=== PATIENT | female | born 1945 | race Caucasian/White ===

== ENCOUNTER → 2016-09-17 | Outpatient (CLI) | payer OTHER ==
[~2016-09-17] MED LIST: ACET-1256 PO; ASPI81TA28 PO; CETI10TA84 PO; CHOL100010 PO; CHOL2000 PO; CYAN500T13 PO; DICL-201 PO; DLD2 PO; ESOM20CA PO; LEVO-371 PO; LEVO137T3 PO; LEVO150T9 PO; MELA1TAB5 PO; MONT1TAB3 PO; MULT-513 PO; NAPR1TAB9 PO; NRN100 PO; RANI300T2 PO; SIMV20TA2 PO; TRMCR515 TOP
--- NOTE | 2016-09-17 12:46 | MAMMOGRAPHY REPORT ---
BILATERAL DIGITAL SCREENING MAMMOGRAM WITH CAD: 09/17/2016 CLINICAL HISTORY: Routine screening. Patient has no complaints. TECHNIQUE: Current study was also evaluated with a Computer Aided Detection (CAD) system. Bilatera l CC and MLO views were obtained. COMPARISON: Comparison is made to exams dated: 09/15/2015 mammogram, 09/07/2013 mammogram, 09/13/2014 m ammogram, 08/31/2012 mammogram, 08/30/2011 mammogram, and 08/28/2010 mammogram - [facility]. BREAST COMPOSITION: There are scattered areas of fibroglandular density in both breasts. FINDINGS: No suspicious masses, calcifications, or areas of architectural distortion are noted in e ither breast. There has been no significant interval change compared to prior exams. IMPRESSION: ACR BI-RADS CATEGORY 1: NEGATIVE There is no mammographic evidence of malignancy. A 1 year screening mammogram is recommended. The p atient will receive written notification of the results. Approximately 10% of breast cancers are not detected with mammography. A negative mammographic repor t should not delay biopsy if a clinically suggestive mass is present. Sho Becerril M.D. /:09/17/2016 10:14:44 Molder Trimmer: Iman BEGUM(R)(M), [facility] letter sent: Normal 1/2 BI-RADS Code: ACR BI-RADS Category 1: Negative
== END | disposition home or self-care (01) ==
LOC: C.MAMM 09:52
PROVIDERS: ATTEND Internal Medicine Geriatric Medicine
DX: Z12.31 Encounter for screening mammogram for malignant neoplasm of breast (principal)

== ENCOUNTER 2016-11-19 05:16 | Inpatient (IN) | payer OTHER ==
[2016-10-26 10:59] VITALS: BMI 40.0
--- NOTE | 2016-10-26 11:25 | PAT Medication Instructions ---
Service Date Oct 26, 2016. Current Home Medication List Acetaminophen (Tylenol), 1,000 MG PO TID Aspirin (Aspirin Ec), 81 MG PO QAM Cetirizine (Zyrtec), 10 MG PO DAILY PRN for PRN Cholecalciferol (Vitamin D), 2,000 INTER.UNIT PO QAM Diclofenac (Voltaren), 75 MG PO BID Esomeprazole Magnesium (Nexium), 20 MG PO QAM PRN for RN Levothyroxine Sodium (Levothyroxine Sodium), 1 TAB PO QAM Melatonin (Kp Melatonin), 1 TAB PO HS PRN for PRN Ranitidine (Zantac), 300 MG PO QPM PRN for RN Simvastatin (Zocor), 20 MG PO QPM Triamcinolone Acet (Triamcinolone Acetonide), 1 APPLN TOP BID PRN for PRN Medication Instructions For Your Scheduled Surgery Diclofenac (Voltaren), 75 MG PO BID (per surgeon instructions) - Hold the following medications 24 hours prior to surgery: Triamcinolone Acet (Triamcinolone Acetonide), 1 APPLN TOP BID PRN for PRN - Hold the following medications the morning of surgery: Cetirizine (Zyrtec), 10 MG PO DAILY PRN for PRN Cholecalciferol (Vitamin D), 2,000 INTER.UNIT PO QAM - Take the following medications the morning of surgery with a sip of water: Levothyroxine Sodium (Levothyroxine Sodium), 1 TAB PO QAM Esomeprazole Magnesium (Nexium), 20 MG PO QAM PRN for RN Aspirin (Aspirin Ec), 81 MG PO QAM Acetaminophen (Tylenol), 1,000 MG PO TID (if needed) - Take the following medications as scheduled the night before surgery: Simvastatin (Zocor), 20 MG PO QPM Melatonin (Kp Melatonin), 1 TAB PO HS PRN for PRN Ranitidine (Zantac), 300 MG PO QPM PRN for RN Acetaminophen (Tylenol), 1,000 MG PO TID (if needed) If you have any questions please call us at [phone] or [phone] ( N[place]) or [phone]
[2016-10-26 12:52] LABS: URINE APPEARANCE CLEAR (CLEAR); URINE BILIRUBIN NEG (NEG); URINE COLOR YELLOW; URINE NITRITE NEG (NEG); URINE PH 7.5 (4.5-7.5); URINE SPECIFIC GRAVITY 1.007 (1.000-1.030); UROBILINOGEN NEG (NEG)
[2016-10-26 12:52] LABS: BASO % 0.2 %; BASO ABS # 0.01 K/uL (0-0.2); COMPLETE YES; EOS % 2.3 %; HEMATOCRIT 35.5 % (37-47); IG% 0.2 %; LYMPH % 18.9 %; LYMPH ABS # 0.81 K/uL (1.2-3.4); MEAN CELL VOLUME 91.7 fL (80-100); MEAN CORPUSCULAR HEMOGLOBIN 31.3 pg (25-34); MEAN CORPUSCULAR HGB CONC 34.1 g/dl (32-36); MEAN PLATELET VOLUME 9.9 fL (7.4-10.4); MONO % 4.7 %; NEUT % 73.7 %; PLATELET COUNT 205 K/uL (130-400); RED BLOOD COUNT 3.87 M/uL (4.2-5.4); WHITE BLOOD COUNT 4.28 K/uL (4.8-10.8)
[2016-10-26 12:56] LABS: MANUAL MICROSCOPIC REQUIRED? NO; REVIEW REQ? NO
[2016-10-26 13:03] LABS: INR 0.9 (0.9-1.1); PROTHROMBIN TIME (PATIENT) 10.1 SECONDS (9.0-12.0)
[2016-10-26 13:22] LABS: BUN/CREATININE RATIO 23.3 (10-20); CALCIUM 9.9 mg/dl (8.5-10.1); CREATININE 0.77 mg/dl (0.60-1.20); POTASSIUM 4.4 mmol/L (3.5-5.1)
--- NOTE | 2016-11-17 17:39 | HISTORY & PHYSICAL EXAMINATION ---
DATE OF ADMISSION: 11/19/2016 CHIEF COMPLAINT: Primary osteoarthritis of the right hip. HISTORY OF PRESENT ILLNESS: Alexandrea is a pleasant 71-year-old female who has been having right hip pain for several months. I did a left total hip arthroplasty on her about 3 months ago and she has done very well with that and she was hoping to have the same procedure on the contralateral side. X-rays and clinical examination are diagnostic for primary osteoarthritis of the right hip. After failing extensive conservative treatment, she has elected to proceed with a right total hip arthroplasty. PAST SURGICAL HISTORY: Significant for a left total knee arthroplasty, right total knee arthroplasty, carpal tunnel release bilaterally, rotator cuff repair and a left total hip arthroplasty on 08/20/2016. MEDICATIONS: Include Tylenol 1000 mg as needed, aspirin 81 mg daily, Zyrtec 10 mg daily, vitamin D 2000 units daily, vitamin B12 250 mcg daily, Voltaren 25 mg twice a day, Nexium 20 mg daily, Synthroid 137 mcg daily, melatonin 3 mg daily, Zantac 300 mg as needed, Zocor 20 mg daily, and triamcinolone cream as needed. PAST MEDICAL HISTORY: Significant for hypothyroidism, hyperlipidemia. ALLERGIES: SULFA. FAMILY HISTORY: Noncontributory. SOCIAL HISTORY: The patient is . Rarely drinks, is fairly sedentary. REVIEW OF SYSTEMS: She complains of right hip pain. All other pertinent review of systems are negative. PHYSICAL EXAMINATION: GENERAL: She is awake, alert and oriented x3. She is in no apparent distress. She is very pleasant. HEENT: Pupils are equal, round and reactive to light. Extraocular movements are intact. Oral mucosa is pink and moist. HEART: Regular rate per radial pulse. LUNGS: Shara symmetrically bilaterally with no audible breath sounds. ABDOMEN: Soft, nontender, nondistended. MUSCULOSKELETAL: On physical examination of her right hip, her leg lengths are equal. She does have pain with forced internal and external rotation of her right hip. All her pain is located in her groin. X-rays of the right hip do show advanced osteoarthritis with osteophyte formation and loss of joint space. IMPRESSION: Osteoarthritis of the right hip. PLAN: We will proceed with a Biomet taper lock right total hip arthroplasty. Postoperatively, she will be placed in a soft dressing and discharged to general orthopedic floor. She will be kept on aspirin 325 mg twice a day for DVT prophylaxis. She will likely stay 2 midnights for postoperative medical management.
[~2016-11-19] VITALS: Ht 157.5 cm; Wt 100.9 kg
[2016-11-19] VITALS (9 sets, daily range): BP systolic 92–144; BP diastolic 61–92; PULSE 65–75; TEMP 36.4–36.8; O2SAT 94–99; Ht 157.5 cm; Wt 100.9 kg
[~2016-11-19 05:16] MED LIST changes: -CHOL2000 PO; -CYAN500T13 PO; -DLD2 PO; -LEVO-371 PO; -LEVO150T9 PO; -MONT1TAB3 PO; -MULT-513 PO; -NAPR1TAB9 PO; -NRN100 PO
[2016-11-19] MEDS ORDERED: CEFAZOLIN 2000 MG/60 ML D5W 60 ML IV SCH (06:00)
[2016-11-19] MEDS ORDERED: ACETAMINOPHEN 500 MG TAB PO SCH (06:00)
[2016-11-19] MEDS ORDERED: ROPIVACAINE 5MG/ML 30 ML 150 MG, BUPIVACAINE/EPINEPHR 0.5% MPF 30 ML, KETOROLAC TROMETH... INFIL SCH ×7 (06:00)
[2016-11-19] MEDS ORDERED: GABAPENTIN 300 MG CAP PO SCH (06:00)
[2016-11-19] MEDS ORDERED: FAMOTIDINE 20 MG TAB PO SCH (06:00)
[2016-11-19] MEDS ORDERED: LACTATED RINGER'S 1000ML 500 ML IV ONE (06:00)
[2016-11-19] MEDS ORDERED: LACTATED RINGER'S 1000ML 1,000 ML IV SCH (06:00)
[2016-11-19] MEDS ORDERED: LACTATED RINGER'S 1000ML IV SCH (06:00)
[2016-11-19] MEDS ORDERED: BUPIVACAINE 0.5 % 5 MG/1 ML PF 10ML VIAL ONE (06:14)
[2016-11-19] MEDS ORDERED: ONDANSETRON INJ 2 MG/ML 2 ML VIAL ONE (06:15)
[2016-11-19] MEDS ORDERED: FENTANYL CITRATE INJ 50 MCG/1 ML 2 ML VIAL ONE (06:15)
[2016-11-19] MEDS ORDERED: MIDAZOLAM HCL 1 MG/ML 2ML VIAL ONE ×2 (06:15)
[2016-11-19] MEDS ORDERED: PROPOFOL IV EMULSION 10 MG/ML 20 ML VIAL IV ONE ×2 (06:15→07:49)
[2016-11-19] MEDS: TRANEXAMIC ACID INJ 1,000 MG in SODIUM CHLORIDE 0.9% 100ML 100 ML IV SCH ×2 (06:30→06:36)
[2016-11-19] MEDS ORDERED: ORTHO JOINT ANESTHETIC ONE (06:37)
[2016-11-19] MEDS ORDERED: BACITRACIN 50000 UNIT VIAL ONE (06:38)
--- NOTE | 2016-11-19 06:51 | History & Physical Bridge Note ---
H&P Re-Evaluation Bridge Note: I have examined the patient, reviewed the History & Physical and in the interval since the performance of the History & Physical I have noted the following changes of clinical significance: No changes noted
[2016-11-19] MEDS ORDERED: PHENYLEPHRINE 100MCG/ML 5ML SYR IV PRN (07:30)
[2016-11-19] MEDS ORDERED: FENTANYL CITRATE INJ 50 MCG/1 ML 2 ML VIAL IV PRN (07:30)
[2016-11-19] MEDS ORDERED: EpHEDrine SULFATE INJ 50 MG/ML AMP IV PRN (07:30)
[2016-11-19] MEDS ORDERED: ONDANSETRON INJ 2 MG/ML 2 ML VIAL IV PRN ×2 (07:30→09:00)
[2016-11-19] MEDS ORDERED: NALOXONE HCL 0.4 MG/1 ML VIAL/CARP IV PRN (07:30)
[2016-11-19] MEDS ORDERED: MEPERIDINE HCL 25 MG/ML CARP IV PRN (07:30)
[2016-11-19] MEDS ORDERED: FLUMAZENIL 0.1 MG/1 ML 10 ML VIAL IV PRN (07:30)
[2016-11-19] MEDS ORDERED: LABETALOL HCL IV 5 MG/ML 20ML IV PRN (07:30)
[2016-11-19] MEDS ORDERED: ATROPINE SULFATE 0.1 MG/ML 5ML SYR IV PRN (07:30)
[2016-11-19] MEDS ORDERED: PHENYLEPHRINE 100MCG/ML 5ML SYR ONE (07:37)
[2016-11-19] MEDS ORDERED: EpHEDrine SULFATE 50MG/5ML SYR ONE (07:58)
--- NOTE | 2016-11-19 08:22 | DIAGNOSTIC IMAGING REPORT ---
SINGLE VIEW RIGHT HIP CLINICAL HISTORY: Intraoperative radiograph. FINDINGS: An AP portable view of the right hip is compared to pelvic x-ray dated 10/05/2016. The skeletal structures are osteopenic. A bipolar right hip arthroplasty is in near-anatomic alignment. A single cortical lag screw transfixes the acetabular cup. No acute fracture is seen. There is expected subcutaneous gas and soft tissue swelling overlying the right hip. IMPRESSION: A right hip arthroplasty is in near-anatomic alignment. See above. Electronically signed by: Mj Guzman M.D. 11/19/2016 8:20 AM Dictated Date/Time: 11/19/2016 8:19 AM
--- NOTE | 2016-11-19 08:55 | [facility] Post Operative Brief Note ---
Immediate Operative Summary Operative Date Nov 19, 2016. Pre-Operative Diagnosis Osteoarthritis of right hip Post-Operative Diagnosis Osteoarthritis of right hip Procedure(s) Performed Right Total Hip Arthroplasty Surgeon Dr Khan Centerless Grinding Machine Adjuster Surgeon(s) Sheldon Vogel PA-C Estimated Blood Loss 300ml Findings as above Specimens A: Humeral head Complication(s) None Disposition Recovery Room / PACU
[2016-11-19] MEDS ORDERED: BISACODYL 10 MG SUPP PR PRN (09:00)
[2016-11-19] MEDS ORDERED: CETIRIZINE HCL 10 MG TAB PO PRN (09:00)
[2016-11-19] MEDS ORDERED: MAGNESIUM HYDROXIDE SUSP 30 ML UDC PO PRN (09:00)
[2016-11-19] MEDS ORDERED: METOCLOPRAMIDE HCL INJ 5 MG/ML 2 ML VIAL IV PRN (09:00)
[2016-11-19] MEDS ORDERED: SOD PHOSPHATE/SOD BIPHOSPHATE ENEMA 132 ML BTL PR PRN (09:00)
[2016-11-19] MEDS ORDERED: MoRPHine SULFATE 2 MG/ML CARP IV PRN (09:00)
[2016-11-19] MEDS ORDERED: SILVER SULFADIAZINE 1% CR 50 GM JAR EXT PRN (09:00)
--- NOTE | 2016-11-19 10:09 | DIAGNOSTIC IMAGING REPORT ---
AP PELVIS AND RIGHT HIP 2 VIEWS CLINICAL HISTORY: Postop examination. Degenerative arthritis. COMPARISON STUDY: Outside radiograph dated 10/05/2016 FINDINGS: There are postsurgical changes of bilateral total hip arthroplasties. On the right there are overlying surgical drains. There is air within the soft tissues consistent with recent surgery. There are no acute fractures or dislocations. IMPRESSION: Postsurgical changes of a recent total right hip arthroplasty. No acute fractures or dislocations identified Electronically signed by: Keith Lindsay M.D. 11/19/2016 10:08 AM Dictated Date/Time: 11/19/2016 10:07 AM
--- NOTE | 2016-11-19 10:48 | Anesthesiology Progress Note ---
Anesthesia Post Op Note Date & Time Nov 19, 2016 at 10:47 Vital Signs Pain Intensity: 0 Vital Signs Past 12 Hours Date Time Temp Pulse Resp B/P Pulse Ox O2 Delivery O2 Flow Rate FiO2 11/19/16 10:25 36.5 11/19/16 10:24 65 17 98 11/19/16 10:24 66 17 11/19/16 10:20 114/63 11/19/16 10:19 68 18 11/19/16 10:19 68 18 97 11/19/16 10:15 110/62 11/19/16 10:14 67 14 98 11/19/16 10:14 68 14 11/19/16 10:10 112/66 11/19/16 10:09 68 19 99 11/19/16 10:09 68 19 11/19/16 10:05 117/69 11/19/16 10:04 67 10 100 11/19/16 10:04 66 10 11/19/16 10:00 115/65 11/19/16 09:59 61 11 11/19/16 09:59 61 11 98 11/19/16 09:58 66 16 98 11/19/16 09:58 68 16 11/19/16 09:55 118/69 11/19/16 09:53 60 16 100 11/19/16 09:53 61 16 11/19/16 09:50 119/69 11/19/16 09:48 68 12 11/19/16 09:48 70 12 99 11/19/16 09:45 109/70 11/19/16 09:43 65 12 11/19/16 09:43 65 12 100 11/19/16 09:40 113/64 11/19/16 09:38 65 15 100 11/19/16 09:38 65 15 11/19/16 09:37 105/67 11/19/16 09:33 36.9 70 16 105/67 100 Nasal Cannula 3 11/19/16 05:43 36.8 70 18 142/92 97 Room Air Notes Mental Status: alert / awake / arousable, participated in evaluation Pt Amnestic to Procedure: Yes Nausea / Vomiting: adequately controlled Pain: adequately controlled Airway Patency, RR, SpO2: stable & adequate BP & HR: stable & adequate Hydration State: stable & adequate Neuraxial Anesthesia: was administered, sensory block is resolving Anesthetic Complications: no major complications apparent
[2016-11-19] MEDS: CHOLECALCIFEROL 1000 INTER.UNIT TAB PO SCH (12:01)
[2016-11-19] MEDS: D5W AND 1/2NSS + 20MEQ KCL 1,000 ML IV SCH ×2 (12:01→21:26)
[2016-11-19] MEDS: DOCUSATE SODIUM 100 MG CAP PO SCH ×2 (12:01→20:22)
[2016-11-19] MEDS: PANTOprazole SOD 40 MG TAB PO SCH (12:01)
[2016-11-19] MEDS: MULTIVITAMIN TAB PO SCH (12:01)
[2016-11-19] MEDS: ASPIRIN 325 MG ECTAB PO SCH ×2 (12:01→20:22)
[2016-11-19] MEDS: ACETAMINOPHEN IV 1,000 MG in EMPTY BAG 0 ML IV SCH ×2 (13:31→21:26)
[2016-11-19] MEDS: KETOROLAC TROMETHAMINE 15 MG/ML VIAL IV. SCH ×2 (13:31→20:21)
[2016-11-19] MEDS: CEFAZOLIN IV 2,000 MG in DEXTROSE 5% 50ML 50 ML IV SCH ×2 (13:59→21:56)
--- NOTE | 2016-11-19 16:36 | OPERATIVE REPORT ---
DATE OF OPERATION: 11/19/2016 PREOPERATIVE DIAGNOSIS: Primary osteoarthritis of the right hip. POSTOPERATIVE DIAGNOSIS: Same. PROCEDURE: Right total hip arthroplasty. SURGEON: Dr. Corbin Khan. SECURITY DIRECTOR: Sheldon Vogel PA-C, whose assistance was necessary for positioning the leg and helping with instrumentation. ANESTHESIA: Spinal. COMPLICATIONS: None. CONDITION: Stable to PACU. IMPLANTS USED: I used a Biomet Taperloc right total hip arthroplasty system with a size 48, G7 cup and a single 30-mm screw, a 32-mm E-poly liner, a size 5 press fit Taperloc standard offset stem and a 32-mm 0 neck ceramic femoral head. No cement was used during the case. INDICATIONS: Ms. Lechuga is a pleasant 71-year-old female who presented to my office with complaints of right hip pain. I did a left total hip arthroplasty on her about 3 months ago and she has done very well with that. She elected to proceed with a right hip replacement. OPERATION AND FINDINGS: On 11/19/2016, she arrived at [facility] for the above procedure. She was seen in the preoperative holding area and the operative extremity was identified and signed. She was given a preoperative antibiotic, taken back to the operating room, laid on the table in supine position. She had a spinal anesthetic. She was then put in the lateral decubitus position. The right hip was then prepped and draped in sterile fashion. Time-out was done and the patient and operative extremity was properly identified. An anterolateral approach was used. Dissection was taken down through the fascia and the abductors were exposed. The anterior third of the abductors were tenotomized off the greater trochanter. The capsule was then excised and the hip was dislocated. The femoral neck was then resected and the head was removed. The acetabulum was then exposed. Time was spent doing a complete circumferential capsular and labral release. Sequential reaming up to a size 47 reamer was done and this gave good bleeding bone throughout. A 48-mm G7 cup was then impacted into place. I was able to get a good press fit and a 30-mm derotational screw was placed. A 32-mm E-poly liner was then snapped into place. The proximal femur was then exposed. A canal finding reamer was used followed by sequential broaching up to a size 5 broach. A standard head and neck assembly was applied. The hip was reduced, brought through a full range of motion and felt to be stable. A single flat plate x-ray was taken and I was very happy with the overall alignment and sizing of the components. The hip was dislocated. The final size 5 stem was impacted into place. A 32-mm ceramic head was impacted onto the stem. The hip was reduced, brought through a full range of motion and felt to be stable. The abductors were then tenodesed back to the greater trochanter with transosseous FiberWire sutures and [id number] sutures. Two drains were placed. The entire joint was irrigated with 3 liters of normal saline solution with bacitracin and surrounding soft tissues were injected with 100 mL of an orthopedic pain control cocktail. The fascia was then closed with #1 Vicryl, skin was closed with 2-0 Vicryl and 3-0 V-Loc suture and a Prineo dressing. She was then taken to the postanesthesia care unit in stable condition. She tolerated the procedure well. I attest to the content of the Intraoperative Record and any orders documented therein. Any exceptio ns are noted below.
[2016-11-19] MEDS: TRAMADOL HCL 50 MG TAB PO PRN (18:53)
[2016-11-19] MEDS: SENNA 8.6 MG TAB PO SCH (20:22)
[2016-11-19] MEDS: SIMVASTATIN 20 MG TAB PO SCH (20:22)
[2016-11-20] VITALS (8 sets, daily range): BP systolic 97–147; BP diastolic 60–84; PULSE 69–84; TEMP 36.5–37.3; O2SAT 96–99
[2016-11-20] MEDS: KETOROLAC TROMETHAMINE 15 MG/ML VIAL IV. SCH ×4 (01:41→20:01)
[2016-11-20] MEDS: TRAMADOL HCL 50 MG TAB PO PRN (04:04)
[2016-11-20 05:38] LABS: BASO % 0.1 %; BASO ABS # 0.01 K/uL (0-0.2); COMPLETE YES; EOS % 0.1 %; HEMATOCRIT 28.6 % (37-47); IG% 0.2 %; LYMPH ABS # 0.67 K/uL (1.2-3.4); MEAN CELL VOLUME 90.8 fL (80-100); MEAN CORPUSCULAR HEMOGLOBIN 30.2 pg (25-34); MEAN CORPUSCULAR HGB CONC 33.2 g/dl (32-36); MEAN PLATELET VOLUME 9.9 fL (7.4-10.4); MONO % 4.7 %; NEUT % 86.9 %; PLATELET COUNT 174 K/uL (130-400); RED BLOOD COUNT 3.15 M/uL (4.2-5.4); WHITE BLOOD COUNT 8.33 K/uL (4.8-10.8)
[2016-11-20] MEDS: ACETAMINOPHEN IV 1,000 MG in EMPTY BAG 0 ML IV SCH (05:46)
[2016-11-20] MEDS: LEVOTHYROXINE 137 MCG TAB PO SCH (05:46)
[2016-11-20 05:57] LABS: BUN/CREATININE RATIO 19.3 (10-20); CREATININE 0.82 mg/dl (0.60-1.20); POTASSIUM 4.7 mmol/L (3.5-5.1)
[2016-11-20] MEDS: MULTIVITAMIN TAB PO SCH (07:52)
[2016-11-20] MEDS: PANTOprazole SOD 40 MG TAB PO SCH (07:52)
[2016-11-20] MEDS: ASPIRIN 325 MG ECTAB PO SCH ×2 (07:52→21:03)
[2016-11-20] MEDS: CHOLECALCIFEROL 1000 INTER.UNIT TAB PO SCH (07:52)
[2016-11-20] MEDS: DOCUSATE SODIUM 100 MG CAP PO SCH ×2 (07:52→21:00)
[2016-11-20] MEDS: D5W AND 1/2NSS + 20MEQ KCL 1,000 ML IV SCH (08:00)
[2016-11-20] MEDS ORDERED: HYDROmorphone INJ 2 MG/ML SYR/VIAL IV PRN (08:45)
--- NOTE | 2016-11-20 09:05 | PROGRESS NOTE ---
DATE: 11/20/2016 DATE: 11/20/2016. CHIEF COMPLAINT: Status post right total hip arthroplasty postop day #1. PROGRESS: Alexandrea was seen and examined at bedside today. She was having a lot of pain last night. She said she only slept about 3 hours. We talked at bedside today when she had her other hip done, we placed her on Dilaudid and that seemed to help better. We will make necessary adjustments. She has no other complaints or acute events overnight. PHYSICAL EXAMINATION: RIGHT HIP: The dressing is clean and dry and the drain is to suction. She is neurovascularly intact. LABORATORY DATA: She has an H\T\H today of 9.5 and 28.6. Her glucose is 134. Her vital signs are all stable on room air. She is voiding on her own. X-rays postoperatively of the right hip show the prosthesis to be in anatomical alignment without any evidence of fracture, dislocation or loosening. IMPRESSION: Status post right total hip arthroplasty postop day #1. PLAN: At this point, she is doing fairly well. We will change her medications to Dilaudid p.o. and IV. She will be up and walking today with physical therapy. The nursing staff will change the dressing and pull the drain tomorrow and will likely discharge her to home with [facility] health.
[2016-11-20] MEDS: HYDROmorphone HCL 2 MG TAB PO PRN (14:27)
[2016-11-20] MEDS: SENNA 8.6 MG TAB PO SCH (21:03)
[2016-11-20] MEDS: SIMVASTATIN 20 MG TAB PO SCH (21:03)
[2016-11-21] MEDS: KETOROLAC TROMETHAMINE 15 MG/ML VIAL IV. SCH ×2 (03:32→07:42)
[2016-11-21] MEDS: LEVOTHYROXINE 137 MCG TAB PO SCH (05:28)
[2016-11-21 06:57] VITALS: BP 107/71; PULSE 74; TEMP 36.7; O2SAT 96
[2016-11-21] MEDS: MULTIVITAMIN TAB PO SCH (08:34)
[2016-11-21] MEDS: DOCUSATE SODIUM 100 MG CAP PO SCH (08:34)
[2016-11-21] MEDS: ASPIRIN 325 MG ECTAB PO SCH (08:34)
[2016-11-21] MEDS: CHOLECALCIFEROL 1000 INTER.UNIT TAB PO SCH (08:34)
[2016-11-21] MEDS: PANTOprazole SOD 40 MG TAB PO SCH (08:34)
[2016-11-21] MEDS ORDERED: DLD2 PO (09:33)
--- NOTE | 2016-11-21 09:34 | Discharge Instructions ---
Discharge Instructions Date of Service Nov 21, 2016. Admission Reason for Admission: Localized, Primary Osteoarthritis of the Right Pel Discharge Discharge Diagnosis / Problem: Left Total Hip Discharge Goals Goal(s): Decrease discomfort, Improve function Activity Recommendations Activity Limitations: as noted below Driving or Machine Use: resume 3 days after discharge follow hip precautions for 3 months . Instructions / Follow-Up Instructions / Follow-Up may shower tomorrow, leave glue dressing in place Current Hospital Diet Patient's current hospital diet: Regular Diet Discharge Diet Recommended Diet: Regular Diet Procedures Procedures Performed: Right Total Hip Arthroplasty Pending Studies Studies pending at discharge: no Medical Emergencies . Who to Call and When: Medical Emergencies: If at any time you feel your situation is an emergency, please call 911 immediately. . Non-Emergent Contact Non-Emergency issues call your: Surgeon Call Non-Emergent contact if: wound has increased drainage, wound has increased redness . "Provider Documentation" section prepared by Corbin Khan. VTE Core Measure Inpt VTE Proph given/why not?: Other Anticoagulation (Aspirin 325 twice a day for 6 weeks)
--- NOTE | 2016-11-21 09:45 | PROGRESS NOTE ---
DATE: 11/21/2016 CHIEF COMPLAINT: Status post right total hip arthroplasty, postop day #2. PROGRESS: Alexandrea was seen and examined at bedside today. She was sitting up in a chair, reading the paper. She was able to get some sleep last night. She has very minimal pain in her hip. She has been participating well with physical therapy and has no complaints. PHYSICAL EXAMINATION: The dressing has been changed. The drain has been pulled. She is sitting comfortably. Her leg lengths are equal. She is neurovascularly intact. IMPRESSION: Status post right total hip arthroplasty, postop day #2. PLAN: At this point, she is doing well. She has been ambulating well with physical therapy and her pain is well controlled. The dressing has been changed and the drain has been pulled. We will discharge her to home with [facility] later this morning.
[2016-11-21 09:53] VITALS: BP 107/71; PULSE 74; TEMP 36.7; O2SAT 96
[2016-11-21 10:09] VITALS: BP 131/70
--- NOTE | 2016-11-21 10:09 | DISCHARGE SUMMARY ---
DISCHARGE DIAGNOSIS: Primary osteoarthritis of the right hip. PROCEDURE: Right total hip arthroplasty on 11/19/[address] Corbin Khan. DISCHARGE INSTRUCTIONS: 1. Dilaudid 2 mg every 4 hours as needed for pain. 2. Aspirin 325 mg twice a day for 6 weeks. 3. SAULO hose stockings for 6 weeks. 4. Follow hip precautions for 3 months. 5. Follow up with Dr. Khan in 2 weeks. 6. May shower starting on Tuesday. 7. Call the office of Dr. Khan with any questions or concerns. 8. Tylenol 1000 mg 3 times a day. 9. Zyrtec 10 mg daily. 10. Vitamin D 2000 units daily. 11. Voltaren 75 mg twice a day. 12. Nexium 20 mg daily. 13. Synthroid 137 mcg daily. 14. Melatonin 1 tab at night as needed. 15. Zocor 20 mg daily. 16. triamcinolone cream as needed. 17. Stop Zantac and aspirin 81 mg. HOSPITAL COURSE: Alexandrea is a pleasant 71-year-old female who presented to my office with chronic bilateral hip pain. She underwent a left total hip arthroplasty 3 months ago and has elected to proceed with a right hip replacement. On 11/19/2016, she came to [facility] and underwent a right total hip arthroplasty without complications. She had a spinal anesthetic. Postoperatively, she was discharged to general orthopedic floor. Her hospital course was uneventful. On postop day #1, her H\T\H was stable at 9.5 and 28.6. Her pain was well controlled. She was up and ambulating well with physical therapy. On postop day #2, her dressing was changed and the drain was pulled. She was still ambulating well with physical therapy. Her pain was controlled. She was subsequently discharged to home with the above instructions.
[2016-11-21] MEDS: HYDROmorphone HCL 2 MG TAB PO PRN (10:21)
[2017-06-16] MEDS ORDERED: LEVO-371 PO (08:20)
[2017-06-16] MEDS ORDERED: NAPR1TAB9 PO (08:20)
[2017-06-16] MEDS ORDERED: LEVO150T9 PO (08:20)
[2017-06-16] MEDS ORDERED: MONT1TAB3 PO (08:20)
== END 2016-11-21 11:12 | disposition home health service (06) | DRG 470 ==
LOC: ENRESERVTM → ENRESERVDT → C.ACU 05:16 → C.3E 06:20
PROVIDERS: ADMIT Orthopaedic Surgery; ATTEND Orthopaedic Surgery
PROC: 0SR90JZ Replacement of Right Hip Joint with Synthetic Substitute, Open Approach (ICD-10-PCS; principal; 2016-11-19 07:00)
DX: M16.11 Unilateral primary osteoarthritis, right hip (principal); E03.9 Hypothyroidism, unspecified; E78.5 Hyperlipidemia, unspecified; Z96.642 Presence of left artificial hip joint; Z96.653 Presence of artificial knee joint, bilateral; Z98.890 Other specified postprocedural states; Z79.82 Long term (current) use of aspirin; Z79.899 Other long term (current) drug therapy

== ENCOUNTER → 2016-12-28 | Outpatient (CLI) | payer OTHER ==
[~2016-12-28] MED LIST changes: +CHOL2000 PO; +HYDR2TAB3 PO; +LEVO150T9 PO; +LEVO5TAB2 PO; +MONT1TAB3 PO; +MULT-513 PO; +NAPR1TAB9 PO; +NRN100 PO; -RANI300T2 PO
== END | disposition home or self-care (01) ==
LOC: C.LABPBG 15:24
PROVIDERS: ATTEND Internal Medicine Geriatric Medicine
DX: E03.9 Hypothyroidism, unspecified (principal)

== ENCOUNTER → 2016-12-29 | Outpatient (CLI) | payer OTHER ==
--- NOTE | 2016-12-29 10:49 | DIAGNOSTIC IMAGING REPORT ---
LUMBAR SPINE 5 VIEWS HISTORY: Low back pain. COMPARISON: Lumbar spine 10/23/2008. FINDINGS: There is no fracture. No subluxation. Bilateral total hip arthroplasties. Minimal levoscoliosis, unchanged. The sacrum appears intact. Severe disc space narrowing at L4-L5. Mild disc space narrowing at L5-S1 and L3-L4. Moderate disc space narrowing at L1-L2 and L2-L3. This has progressed compared to the prior study. Moderate facet degenerative changes within the mid to lower lumbar spine has also progressed. IMPRESSION: No fracture or subluxation within the lumbar spine. Progression of the degenerative disc disease as described above. Electronically signed by: Anuj Dowd M.D. 12/29/2016 10:47 AM Dictated Date/Time: 12/29/2016 10:44 AM
== END | disposition home or self-care (01) ==
LOC: C.RAD 09:52
PROVIDERS: ATTEND Internal Medicine Geriatric Medicine
DX: M51.36 Other intervertebral disc degeneration, lumbar region (principal)

== ENCOUNTER → 2017-01-17 | Outpatient (CLI) | payer OTHER ==
[2017-01-17 12:21] LABS: URINE APPEARANCE CLEAR (CLEAR); URINE BILIRUBIN NEG (NEG); URINE COLOR YELLOW; URINE NITRITE NEG (NEG); URINE PH 5.5 (4.5-7.5); URINE SPECIFIC GRAVITY 1.018 (1.000-1.030); UROBILINOGEN NEG (NEG)
[2017-01-17 12:25] LABS: MANUAL MICROSCOPIC REQUIRED? NO; REVIEW REQ? NO
== END | disposition home or self-care (01) ==
LOC: C.LAB 10:07
PROVIDERS: ATTEND Physician Assistant
DX: R39.9 Unspecified symptoms and signs involving the genitourinary system (principal)

== ENCOUNTER → 2017-02-28 | Outpatient (CLI) | payer OTHER ==
[2017-02-28 10:15] LABS: BASO % 0.7 %; BASO ABS # 0.03 K/uL (0-0.2); COMPLETE YES; EOS % 4.9 %; HEMATOCRIT 36.6 % (37-47); LYMPH % 12.6 %; LYMPH ABS # 0.57 K/uL (1.2-3.4); MEAN CELL VOLUME 89.9 fL (80-100); MEAN CORPUSCULAR HEMOGLOBIN 28.5 pg (25-34); MEAN CORPUSCULAR HGB CONC 31.7 g/dl (32-36); MEAN PLATELET VOLUME 9.8 fL (7.4-10.4); MONO % 6.8 %; PLATELET COUNT 226 K/uL (130-400); RED BLOOD COUNT 4.07 M/uL (4.2-5.4); WHITE BLOOD COUNT 4.53 K/uL (4.8-10.8)
[2017-02-28 10:46] LABS: ALT/SGPT 17 U/L (12-78); BLOOD UREA NITROGEN 18 mg/dl (7-18); BUN/CREATININE RATIO 22.4 (10-20); CARBON DIOXIDE 26 mmol/L (21-32); CHLORIDE 109 mmol/L (98-107); CHOLESTEROL 150 mg/dl (0-200); CREATININE 0.78 mg/dl (0.60-1.20); GLUCOSE 101 mg/dl (70-99); POTASSIUM 4.2 mmol/L (3.5-5.1); SODIUM 142 mmol/L (136-145); TRIGLYCERIDES 89 mg/dl (0-150); VERY LOW DENSITY LIPOPROT CALC 18 mg/dl
[2017-02-28 10:49] LABS: CALCIUM 9.5 mg/dl (8.5-10.1)
[2017-02-28 10:56] LABS: ALB/GLOB RATIO 0.8 (0.9-2); ALKALINE PHOSPHATASE 99 U/L (45-117); AST/SGOT 17 U/L (15-37); CHOLESTEROL/HDL RATIO 2.1; HDL CHOLESTEROL 73 mg/dl; LDL CHOLESTEROL CALCULATED 59 mg/dl
== END | disposition home or self-care (01) ==
LOC: C.LAB 09:13
PROVIDERS: ATTEND Internal Medicine Geriatric Medicine
DX: E03.9 Hypothyroidism, unspecified (principal); R73.9 Hyperglycemia, unspecified; E55.9 Vitamin D deficiency, unspecified

== ENCOUNTER 2017-03-19 14:48 | Emergency (ER) | payer OTHER ==
[~2017-03-19] VITALS: Ht 157.5 cm; Wt 100.3 kg
[~2017-03-19 14:48] MED LIST changes: -ASPI81TA28 PO; -CHOL2000 PO; +DLD2 PO; -HYDR2TAB3 PO; -LEVO150T9 PO; -LEVO5TAB2 PO; -MONT1TAB3 PO; -MULT-513 PO; -NAPR1TAB9 PO; -NRN100 PO
[2017-03-19 14:51] VITALS: TEMP 36.6; Ht 157.5 cm; Wt 100.3 kg
[2017-03-19] MEDS ORDERED: SODIUM CHLORIDE 0.9% 1000ML 500 ML IV STA (15:00)
[2017-03-19] MEDS ORDERED: SODIUM CHLORIDE 0.9% 1000ML 1,000 ML IV STA (15:00)
--- NOTE | 2017-03-19 15:15 | EMERGENCY ROOM VISIT NOTE ---
History Report prepared by Marquez: Adilene Chavarria Under the Supervision of: Dr. Mj Hannah M.D. First contact with patient: 14:55 Chief Complaint: WEAKNESS Stated Complaint: WEAK,TIRED,LIGHTHEADED History of Present Illness The patient is a 71 year old female who presents to the Emergency Room with complaints of worsening generalized weakness starting about a week ago. She reports increased tiredness. About 3-4 weeks ago, the patient had blood work which showed low iron levels and mild anemia. She was placed on a multivitamin and her thyroid medication dose was increased to 175 mcg. About a week ago, she started having severe diffuse itchiness which lasted all night. She has a history of similar itchiness occurring a few years ago which was resolved with lowering the thyroid medication dosage. This time, she reduced the medication dosage to 150 mcg with relief in the itchiness. She did not consult her PCP before lowering the dosage. Since lowering the dosage, she has been having generalized weakness. She also complains of a persistent cough. She has been taking Zyrtec with some relief. She denies any burning with urination but reports an increased frequency which has been occurring for a long time. She denies any recent falls, fevers, sore throat, or any other complaints. She denies any history of frequent UTIs. Source of History: patient Onset: about a week ago Position: other (global) Quality: other (generalized weakness) Timing: worsening Associated Symptoms: No fevers, No sorethroat Review of Systems See HPI for pertinent positives & negatives. A total of 10 systems reviewed and were otherwise negative. Past Medical & Surgical Medical Problems: (1) Osteoarthritis of hip Family History Patient reports no known family medical history. Social History Smoking Status: Never Smoker Marital Status: Occupation Status: retired Current/Historical Medications Scheduled Acetaminophen (Tylenol), 1,000 MG PO TID Aspirin (Aspirin Ec), 81 MG PO DAILY Cholecalciferol (Vitamin D3), 1 CAP PO DAILY Diclofenac (Voltaren), 75 MG PO BID Gabapentin (Gabapentin), 1 TAB PO BID Levothyroxine Sodium (Levothyroxine Sodium), 1 TAB PO DAILYBB Multivitamins/Minerals (Mvi With Minerals), 1 TAB PO DAILY Simvastatin (Zocor), 20 MG PO QPM Scheduled PRN Cetirizine (Zyrtec), 10 MG PO DAILY PRN for PRN Esomeprazole Magnesium (Nexium), 20 MG PO QAM PRN for RN Hydromorphone HCl (Hydromorphone HCl), 2 MG PO Q4HWA PRN for Pain Melatonin (Kp Melatonin), 1 TAB PO HS PRN for PRN Triamcinolone Acet (Triamcinolone Acetonide), 1 APPLN TOP BID PRN for PRN Allergies Coded Allergies: Sulfa Antibiotics (Verified Allergy, Mild, PRURITIS TO SULFA DRUGS, 03/19/17 ) Influenza Vaccines (Verified Allergy, Unknown, per PCP note , 03/19/17) Atorvastatin (Verified Adverse Reaction, Mild, GI UPSET, 03/19/17) Codeine (Verified Adverse Reaction, Mild, GI UPSET, 03/19/17) Oxycodone (Verified Adverse Reaction, Mild, GI UPSET, 03/19/17) Physical Exam Vital Signs Date Time Temp Pulse Resp B/P (MAP) Pulse Ox O2 Delivery O2 Flow Rate FiO2 03/19/17 18:26 73 18 131/71 99 03/19/17 16:00 68 138/77 97 Room Air 83 148/78 79 140/72 03/19/17 15:22 63 03/19/17 14:51 36.6 69 18 184/86 95 Room Air Physical Exam GENERAL: Patient is in no acute distress. HEENT: No acute trauma, normocephalic atraumatic, mucous membranes moist, no nasal congestion, no scleral icterus. NECK: No stridor, no adenopathy, no meningismus, trachea is midline. LUNGS: Clear to auscultation bilaterally, no wheeze, no rhonchi, breath sounds equal. HEART: Without murmurs gallops or rubs, regular rate and rhythm. ABDOMEN: Soft, nontender, bowel sounds positive, no hernias, no peritonitis. EXTREMITIES: No cyanosis or edema, full range of motion of all the joints without pain or difficulty, no signs for acute trauma. NEUROLOGIC: Oriented x 3, no acute motor or sensory deficits, no focal weakness. SKIN: No rash, no jaundice, no diaphoresis. Slightly pale. Medical Decision & Procedures ER Provider Diagnostic Interpretation: Orthostatic vital signs are negative. X-ray results as stated below per interpretation by me and the radiologist: CHEST ONE VIEW PORTABLE CLINICAL HISTORY: Altered mental status. Weakness. Lightheadedness. COMPARISON STUDY: 01/17/2016 FINDINGS: The cardiac and mediastinal contours are normal. There is no evidence of focal pulmonary consolidation. There is no evidence of failure. No pleural effusions are visualized.[ IMPRESSION: No active disease in the chest. Electronically signed by: Keith Lindsay M.D. 03/19/2017 3:20 PM Dictated Date/Time: 03/19/2017 3:20 PM Laboratory Results 03/19/17 15:00 Red Blood Count 4.43, Mean Corpuscular Volume 89.2, Mean Corpuscular Hemoglobin 28.9, Mean Corpuscular Hemoglobin Concent 32.4, Mean Platelet Volume 9.5, Neutrophils (%) (Auto) 60.3, Lymphocytes (%) (Auto) 25.0, Monocytes (%) (Auto) 8.6, Eosinophils (%) (Auto) 5.2, Basophils (%) (Auto) 0.9, Neutrophils # (Auto) 2.65, Lymphocytes # (Auto) 1.10, Monocytes # (Auto) 0.38, Eosinophils # (Auto) 0.23, Basophils # (Auto) 0.04 03/19/17 15:00 Test 03/19/17 15:00 03/19/17 16:20 White Blood Count 4.40 K/uL (4.8-10.8) Red Blood Count 4.43 M/uL (4.2-5.4) Hemoglobin 12.8 g/dL (12.0-16.0) Hematocrit 39.5 % (37-47) Mean Corpuscular Volume 89.2 fL (80-100) Mean Corpuscular Hemoglobin 28.9 pg (25-34) Mean Corpuscular Hemoglobin Concent 32.4 g/dl (32-36) Platelet Count 243 K/uL (130-400) Mean Platelet Volume 9.5 fL (7.4-10.4) Neutrophils (%) (Auto) 60.3 % Lymphocytes (%) (Auto) 25.0 % Monocytes (%) (Auto) 8.6 % Eosinophils (%) (Auto) 5.2 % Basophils (%) (Auto) 0.9 % Neutrophils # (Auto) 2.65 K/uL (1.4-6.5) Lymphocytes # (Auto) 1.10 K/uL (1.2-3.4) Monocytes # (Auto) 0.38 K/uL (0.11-0.59) Eosinophils # (Auto) 0.23 K/uL (0-0.5) Basophils # (Auto) 0.04 K/uL (0-0.2) RDW Standard Deviation 49.7 fL (36.4-46.3) RDW Coefficient of Variation 15.2 % (11.5-14.5) Immature Granulocyte % (Auto) 0.0 % Immature Granulocyte # (Auto) 0.00 K/uL (0.00-0.02) Anion Gap 7.0 mmol/L (3-11) Est Creatinine Clear Calc Drug Dose 61.7 ml/min Estimated GFR () 73.5 Estimated GFR (Non- 63.4 BUN/Creatinine Ratio 21.2 (10-20) Calcium Level 10.2 mg/dl (8.5-10.1) Magnesium Level 2.1 mg/dl (1.8-2.4) Total Bilirubin 0.4 mg/dl (0.2-1) Aspartate Amino Transf (AST/SGOT) 19 U/L (15-37) Alanine Aminotransferase (ALT/SGPT) 24 U/L (12-78) Alkaline Phosphatase 105 U/L (45-117) Total Creatine Kinase 30 U/L (26-192) Troponin I < 0.015 ng/ml (0-0.045) Total Protein 7.4 gm/dl (6.4-8.2) Albumin 3.5 gm/dl (3.4-5.0) Globulin 3.9 gm/dl (2.5-4.0) Albumin/Globulin Ratio 0.9 (0.9-2) Thyroid Stimulating Hormone (TSH) 3.900 uIu/ml (0.300-4.500) Free Thyroxine 1.52 ng/dl (0.80-1.60) Lyme Disease IgG Antibody NEG (NEG) Lyme Disease IgM Antibody NEG (NEG) Monoscreen NEG (NEG) Urine Color YELLOW Urine Appearance CLEAR (CLEAR) Urine pH 7.5 (4.5-7.5) Urine Specific [place] 1.009 (1.000-1.030) Urine Protein NEG (NEG) Urine Glucose (UA) NEG (NEG) Urine Ketones NEG (NEG) Urine Occult Blood NEG (NEG) Urine Nitrite NEG (NEG) Urine Bilirubin NEG (NEG) Urine Urobilinogen NEG (NEG) Urine Leukocyte Esterase NEG (NEG) Laboratory results reviewed by me. Medications Administered Medications (Trade) Dose Ordered Sig/Shauna Route Start Time Stop Time Status Last Admin Dose Admin Sodium Chloride 500 ml @ 999 mls/hr Q31M STAT IV 03/19/17 15:00 03/19/17 15:30 DC 03/19/17 16:02 999 MLS/HR Sodium Chloride 1,000 ml @ 200 mls/hr Q5H STAT IV 03/19/17 15:00 03/19/17 18:52 DC 03/19/17 16:03 200 MLS/HR ECG Indication: weakness Rate (beats per minute): 69 Rhythm: normal sinus Findings: no acute ischemic change, no ectopy ED Course 1455: The patient was evaluated in room B10. A complete history and physical exam was performed. 1500: Sodium Chloride 1000 ml @ 200 mls/hr IV, Sodium Chloride 500 ml @ 999 mls/ hr IV 1645: I reevaluated the patient who is feeling better. I updated her. 1745: Reevaluated the patient. Discussed results and discharge instructions: She verbalized understanding and agreement. The patient is ready for discharge. Medical Decision Medication Reconciliation: I attest that I have personally reviewed the patient' s current medication list. Blood Pressure Screening: Patient was found to have an elevated blood pressure and was referred to their primary doctor for recheck and further treatment. Differential diagnosis includes but is not limited to dehydration, anemia, electrolyte imbalance, hypothyroidism, pneumonia, UTI, stroke, bacteremia. There is no leukocytosis, in fact, the white count is slightly low suggesting a possible viral infection. No anemia. No significant electrolyte abnormality, kidney failure, hepatitis. Thyroid testing is unremarkable. Urinalysis does not show infection. Lyme disease testing is negative, mono test is negative. Chest film does not show pneumonia or mediastinal widening. EKG shows a sinus rhythm, no acute ischemia. Cardiac enzyme testing 1 is not consistent with acute cardiac injury. Orthostatic vital signs are negative. Blood cultures are pending. The patient presents with weakness and fatigue. Here, she was given IV saline for hydration. She has done well. Patient is not febrile or toxic. I find no source for bacterial infection. I do think the patient can be discharged. Her illness may be viral. The patient was encouraged to see her doctor this week in follow-up. She will rest. If she is worsening, she can return for reassessment. We will call with any positive blood culture results. Impression Primary Impression: Weakness Scribe Attestation The scribe's documentation has been prepared under my direction and personally reviewed by me in its entirety. I confirm that the note above accurately reflects all work, treatment, procedures, and medical decision making performed by me. Departure Information Dispostion Home / Self-Care Referrals Syd Stratton M.D. (PCP) Forms HOME CARE DOCUMENTATION FORM, IMPORTANT VISIT INFORMATION Patient Instructions My [facility] Additional Instructions see your doctor for a reheck this week return if worsening as discussed rest stay well hydrated we will call with positive blood culture results
[2017-03-19 15:18] LABS: BASO % 0.9 %; BASO ABS # 0.04 K/uL (0-0.2); COMPLETE YES; EOS % 5.2 %; HEMATOCRIT 39.5 % (37-47); MEAN CELL VOLUME 89.2 fL (80-100); MEAN CORPUSCULAR HEMOGLOBIN 28.9 pg (25-34); MEAN CORPUSCULAR HGB CONC 32.4 g/dl (32-36); MEAN PLATELET VOLUME 9.5 fL (7.4-10.4); MONO % 8.6 %; NEUT % 60.3 %; PLATELET COUNT 243 K/uL (130-400); RED BLOOD COUNT 4.43 M/uL (4.2-5.4)
--- NOTE | 2017-03-19 15:21 | DIAGNOSTIC IMAGING REPORT ---
CHEST ONE VIEW PORTABLE CLINICAL HISTORY: Altered mental status. Weakness. Lightheadedness. COMPARISON STUDY: 01/17/2016 FINDINGS: The cardiac and mediastinal contours are normal. There is no evidence of focal pulmonary consolidation. There is no evidence of failure. No pleural effusions are visualized.[ IMPRESSION: No active disease in the chest. Electronically signed by: Keith Lindsay M.D. 03/19/2017 3:20 PM Dictated Date/Time: 03/19/2017 3:20 PM
[2017-03-19] MEDS ORDERED: LEVO150T9 PO (15:32)
[2017-03-19] MEDS ORDERED: ASPI81TA28 PO (15:32)
[2017-03-19] MEDS ORDERED: CHOL2000 PO (15:32)
[2017-03-19] MEDS ORDERED: NRN100 PO (15:32)
[2017-03-19] MEDS ORDERED: MULT-513 PO (15:32)
[2017-03-19 15:39] LABS: ALT/SGPT 24 U/L (12-78); BLOOD UREA NITROGEN 19 mg/dl (7-18); BUN/CREATININE RATIO 21.2 (10-20); CALCIUM 10.2 mg/dl (8.5-10.1); CARBON DIOXIDE 26 mmol/L (21-32); CHLORIDE 109 mmol/L (98-107); GLUCOSE 102 mg/dl (70-99); MAGNESIUM 2.1 mg/dl (1.8-2.4); POTASSIUM 3.9 mmol/L (3.5-5.1); SODIUM 142 mmol/L (136-145)
[2017-03-19 15:48] LABS: ALB/GLOB RATIO 0.9 (0.9-2); ALKALINE PHOSPHATASE 105 U/L (45-117); AST/SGOT 19 U/L (15-37)
[2017-03-19 16:30] LABS: URINE APPEARANCE CLEAR (CLEAR); URINE BILIRUBIN NEG (NEG); URINE COLOR YELLOW; URINE NITRITE NEG (NEG); URINE PH 7.5 (4.5-7.5); URINE SPECIFIC GRAVITY 1.009 (1.000-1.030); UROBILINOGEN NEG (NEG); ZZUR CULT IF INDIC CLEAN CATCH NO
[2017-03-19 16:53] LABS: MANUAL MICROSCOPIC REQUIRED? NO; REVIEW REQ? NO
[2017-03-19 17:03] LABS: LYME DISEASE AB IGG NEG (NEG); LYME DISEASE AB IGM NEG (NEG)
[2017-03-19 18:26] VITALS: BP 131/71; PULSE 73; O2SAT 99
[2017-06-16] MEDS ORDERED: NAPR1TAB9 PO (08:20)
[2017-06-16] MEDS ORDERED: MONT1TAB3 PO (08:20)
[2017-06-16] MEDS ORDERED: LEVO150T9 PO (08:20)
[2017-06-16] MEDS ORDERED: LEVO-371 PO (08:20)
== END 2017-03-19 18:27 | disposition home or self-care (01) ==
LOC: C.EDB 14:49
DX: R53.1 Weakness (principal); M16.10 Unilateral primary osteoarthritis, unspecified hip; Z79.82 Long term (current) use of aspirin

== ENCOUNTER → 2017-03-25 | Outpatient (CLI) | payer OTHER ==
[~2017-03-25] MED LIST changes: +ASPI81TA28 PO; -CHOL100010 PO; +CHOL2000 PO; +LEVO-371 PO; -LEVO137T3 PO; +LEVO150T9 PO; +MONT1TAB3 PO; +MULT-513 PO; +NAPR1TAB9 PO; +NRN100 PO
--- NOTE | 2017-03-25 14:41 | DIAGNOSTIC IMAGING REPORT ---
ABDOMEN COMPLETE (US) CLINICAL HISTORY: 71 years-old Female presenting with Back pain. TECHNIQUE: Real-time grayscale and limited color Doppler ultrasound imaging of the abdomen was performed. COMPARISON: 2012. FINDINGS: Pancreas: Visualized portions of the pancreatic head and body normal. Liver: Mildly hyperechogenic parenchyma, although the right hemidiaphragm remains visible, likely indicating mild steatosis. The liver measures 14 cm in maximal sagittal dimension. Main portal vein patent with normal directional flow. Biliary: No intrahepatic biliary ductal dilatation. Common bile duct measures up to 4 mm in diameter. Gallbladder: Normal in appearance without evidence of gallstones, gallbladder wall thickening, or pericholecystic fluid. Spleen: Normal in echogenicity and size, measuring 11 cm in length. Kidneys: Normal in size and echogenicity. Right kidney measures 9.8 cm, and the left kidney measures 10.5 cm. No hydronephrosis. Vasculature: Visualized portions of the IVC and abdominal aorta normal. Ascites: None. IMPRESSION: 1. Suggestion of mild hepatic steatosis. No other evidence of intra-abdominal pathology. Electronically signed by: John Guan M.D. 03/25/2017 2:40 PM Dictated Date/Time: 03/25/2017 2:37 PM
== END | disposition home or self-care (01) ==
LOC: C.ULTR 10:51
PROVIDERS: ATTEND Internal Medicine Geriatric Medicine
DX: M54.9 Dorsalgia, unspecified (principal)

== ENCOUNTER → 2017-04-27 | Outpatient (CLI) | payer OTHER ==
[2017-04-27 12:27] LABS: BASO % 0.4 %; BASO ABS # 0.02 K/uL (0-0.2); COMPLETE YES; EOS % 2.6 %; HEMATOCRIT 40.9 % (37-47); IG% 0.2 %; LYMPH % 23.7 %; LYMPH ABS # 1.11 K/uL (1.2-3.4); MEAN CELL VOLUME 89.7 fL (80-100); MEAN CORPUSCULAR HEMOGLOBIN 29.8 pg (25-34); MEAN CORPUSCULAR HGB CONC 33.3 g/dl (32-36); MEAN PLATELET VOLUME 10.1 fL (7.4-10.4); MONO % 7.3 %; NEUT % 65.8 %; PLATELET COUNT 235 K/uL (130-400); RED BLOOD COUNT 4.56 M/uL (4.2-5.4); WHITE BLOOD COUNT 4.68 K/uL (4.8-10.8)
[2017-04-27 13:31] LABS: ALT/SGPT 25 U/L (12-78); BLOOD UREA NITROGEN 18 mg/dl (7-18); BUN/CREATININE RATIO 21.1 (10-20); CALCIUM 9.9 mg/dl (8.5-10.1); CARBON DIOXIDE 26 mmol/L (21-32); CHLORIDE 109 mmol/L (98-107); CREATININE 0.84 mg/dl (0.60-1.20); GLUCOSE 96 mg/dl (70-99); POTASSIUM 4.3 mmol/L (3.5-5.1); SODIUM 140 mmol/L (136-145)
[2017-04-27 13:42] LABS: ALB/GLOB RATIO 0.8 (0.9-2); ALKALINE PHOSPHATASE 108 U/L (45-117); AST/SGOT 19 U/L (15-37)
[2017-05-02 20:17] LABS: ALTERNARIA CLASS 0; ALTERNARIA IGE <0.10 KU/L; ASPERG FUMIG CLASS 0; ASPERG FUMIG IGE <0.10 KU/L; BAHIA GRASS ASM CLASS 0; BAHIA GRASS IGE <0.10 KU/L; BEEF CLASS 0; BEEF IGE <0.10 KU/L; BERMUDA GRASS CLASS 0; BERMUDA GRASS IGE <0.10 KU/L; BIRCH CLASS 0; BLACK LOCUST CLASS 0; BLACK LOCUST IGE <0.35 kU/L (<0.35); CAT DANDER CLASS 0; CHOCOLATE CLASS 0; CHOCOLATE IGE <0.10 KU/L; CLADOSPORIUM HER CLASS 0; CLADOSPORIUM HER IGE <0.10 KU/L; CLAM CLASS 0; CLAM IGE <0.10 KU/L; COCKROACH CLASS 0; CORN CLASS 0; CORN IGE <0.10 KU/L; CRAB CLASS 0; CRAB IGE <0.10 KU/L; D. FARINAE CLASS 0; D. FARINAE IGE <0.10 KU/L; D. PTERONYSSINUS CLASS 0; D. PTERONYSSINUS IGE <0.10 KU/L; DOG DANDER CLASS 0; EGG MIX CLASS 0; EGG MIX IGE <0.10 KU/L; ELM CLASS 0; ENGLISH PLAN CLASS 0; ENGLISH PLAN IGE <0.10 KU/L; JOHNSON CLASS 0; JOHNSON IGE <0.10 KU/L; JUNE (KENTUCKY BLUE) CLASS 0; JUNE IGE <0.10 KU/L; LOBSTER CLASS 0; LOBSTER IGE <0.10 KU/L; MAPLE (BOX ELDER) IGE <0.10 KU/L; MAPLE CLASS 0; MOUNTAIN CEDAR ASM CLASS 0; MOUNTAIN CEDAR IGE <0.10 KU/L; MUCOR CLASS 0; MUCOR IGE <0.10 KU/L; NETTLE CLASS 0; NETTLE IGE <0.10 KU/L; PEANUT IGE <0.10 KU/L; PENIC NOTATUM CLASS 0; PENIC NOTATUM IGE <0.10 KU/L; PORK CLASS 0; PORK IGE <0.10 KU/L; ROUGH PIGWEED CLASS 0; ROUGH PIGWEED IGE <0.10 KU/L; SHORT RAGWEED CLASS 0; SHORT RAGWEED IGE <0.10 KU/L; SHRIMP CLASS 0; SOY CLASS 0; SOY IGE <0.10 KU/L; STEMPHY BOTRY CLASS 0; STEMPHY BOTRY IGE <0.10 KU/L; WHEAT CLASS 0; WHEAT IGE <0.10 KU/L; WHITE HICKORY ASM CLASS 0; WHITE HICKORY IGE <0.10 kU/L (<0.35); WHITE MULBERRY CLASS 0; WHITE MULBERRY IGE <0.10 KU/L
--- NOTE | 2017-05-04 08:56 | CODING QUERY MEDICAL NECESSITY ---
SUPPORTING DIAGNOSIS NEEDED Dr. Shahid, A supporting diagnosis is required for the test/procedure performed on this patient in order for us to be reimbursed by the patient's insurance. Please provide a supporting diagnosis for the following test/procedure listed below next to the test name along with your signature. *If there is no additional diagnosis for this patient that would support the following test/procedure please document that below next to the test/procedure. Test(s)/Procedure(s) that require a supporting diagnosis: * ([id number]) FOOD ALLERGY PANEL 13 ALLERGEN & ALLERGY PANEL ZONE DIAGNOSIS: DATE OF SERVICE: 04/27/17 Provider Signature: Date: Thank you [facility] Information Management Once completed, please kindly fax back to [phone] For questions please call [phone]
== END | disposition home or self-care (01) ==
LOC: C.LAB1850 11:29
PROVIDERS: ATTEND Internal Medicine Pulmonary Disease
DX: D64.9 Anemia, unspecified (principal); L29.9 Pruritus, unspecified

== ENCOUNTER → 2017-05-09 | Outpatient (CLI) | payer OTHER | END | disposition home or self-care (01) | LOC: C.LAB 15:23 | PROVIDERS: ATTEND Internal Medicine Geriatric Medicine | DX: E03.9 Hypothyroidism, unspecified (principal) ==

== ENCOUNTER → 2017-07-28 | Outpatient (CLI) | payer OTHER ==
[~2017-07-28] MED LIST changes: -DICL-201 PO; -DLD2 PO; -LEVO-371 PO; +LEVO5TAB2 PO; -MULT-513 PO
--- NOTE | 2017-07-28 13:33 | DIAGNOSTIC IMAGING REPORT ---
LUMBAR SPINE WITHOUT CLINICAL HISTORY: 72 years-old Female presenting with LUMBAGO. TECHNIQUE: Multidetector CT of the lumbar spine was performed without the use of intravenous contrast. IV contrast: None. A dose lowering technique was used consistent with the principles of ALARA (as low as reasonably achievable). COMPARISON: Plain radiographs of the lumbar spine from 12/29/2016. CT DOSE (mGy.cm): The estimated cumulative dose is 729.10 mGycm. FINDINGS: Spa Director/Finance topogram: Unremarkable. Normal lumbar lordosis. Mild levocurvature of the lumbar spine centered at L2-3. Vertebral bodies maintain normal height and alignment otherwise. Multilevel intervertebral disc height loss at L1-2 through L4-5. At these levels, disc bulges are evident. Allowing for limited visualization on CT, these do not result in significant spinal canal narrowing. Mild facet arthropathy in the lower lumbar spine results in mild neural foraminal narrowing at L3-4 and L4-5, greater on the left. No acute fracture or subluxation. Paraspinal soft tissues within normal limits. Atherosclerosis noted. No focal fluid collection. Nonspecific subcutaneous edema in the posterior lower back. IMPRESSION: 1. Scoliosis. 2. Multilevel degenerative changes with disc bulges noted at nearly every level. The degree of spinal canal stenosis would be better demonstrated with MR. 3. Mild neural foraminal narrowing suggested at L3-4 and L4-5 greater on the left. Electronically signed by: John Guan M.D. 07/28/2017 1:32 PM Dictated Date/Time: 07/28/2017 1:27 PM
== END | disposition home or self-care (01) ==
LOC: C.CTS 11:40
PROVIDERS: ATTEND Physician Assistant Medical
DX: M41.9 Scoliosis, unspecified (principal); M48.061 Spinal stenosis, lumbar region without neurogenic claudication

== ENCOUNTER → 2017-09-13 | Outpatient (CLI) | payer OTHER ==
[~2017-09-13] MED LIST changes: +ASCO-63 PO; +LEVO137T3 PO; +MISCCAP80 PEG; +PRED20TA PO
[2017-09-13 17:34] LABS: BASO % 0.4 %; BASO ABS # 0.03 K/uL (0-0.2); EOS % 1.1 %; EOS ABS # 0.08 K/uL (0-0.5); HEMATOCRIT 42.7 % (37-47); HEMOGLOBIN 14.1 g/dL (12.0-16.0); IG# 0.01 K/uL (0.00-0.02); LYMPH % 19.7 %; LYMPH ABS # 1.39 K/uL (1.2-3.4); MEAN CELL VOLUME 94.7 fL (80-100); MEAN CORPUSCULAR HEMOGLOBIN 31.3 pg (25-34); MEAN PLATELET VOLUME 9.9 fL (7.4-10.4); MONO % 7.2 %; MONO ABS # 0.51 K/uL (0.11-0.59); NEUT % 71.5 %; NEUT ABS # 5.02 K/uL (1.4-6.5); PLATELET COUNT 235 K/uL (130-400); RED CELL DISTRIBUTION WIDTH CV 13.5 % (11.5-14.5); RED CELL DISTRIBUTION WIDTH SD 46.6 fL (36.4-46.3); WHITE BLOOD COUNT 7.04 K/uL (4.8-10.8)
[2017-09-13 19:51] LABS: BLOOD UREA NITROGEN 20 mg/dl (7-18); CARBON DIOXIDE 30 mmol/L (21-32); CREATININE 1.33 mg/dl (0.60-1.20); GLUCOSE 101 mg/dl (70-99); POTASSIUM 4.2 mmol/L (3.5-5.1); SODIUM 137 mmol/L (136-145)
== END | disposition home or self-care (01) ==
LOC: C.LABBC 14:36
PROVIDERS: ATTEND Physician Assistant Medical
DX: R51 Headache (principal)

== ENCOUNTER → 2017-09-19 | Outpatient (CLI) | payer OTHER ==
[~2017-09-19] MED LIST changes: -ASCO-63 PO; -LEVO137T3 PO; -MISCCAP80 PEG; -PRED20TA PO
[2017-09-19 17:19] LABS: BLOOD UREA NITROGEN 23 mg/dl (7-18); CALCIUM 10.1 mg/dl (8.5-10.1); CARBON DIOXIDE 30 mmol/L (21-32); CREATININE 1.17 mg/dl (0.60-1.20); GLUCOSE 102 mg/dl (70-99); POTASSIUM 3.9 mmol/L (3.5-5.1); SODIUM 139 mmol/L (136-145)
== END | disposition home or self-care (01) ==
LOC: C.LABBC 14:31
PROVIDERS: ATTEND Physician Assistant Medical
DX: K76.0 Fatty (change of) liver, not elsewhere classified (principal)

== ENCOUNTER → 2017-09-20 | Outpatient (CLI) | payer OTHER ==
--- NOTE | 2017-09-21 15:29 | MAMMOGRAPHY REPORT ---
BILATERAL DIGITAL SCREENING MAMMOGRAM TOMOSYNTHESIS WITH CAD: 09/20/2017 CLINICAL HISTORY: Routine screening. Patient has no complaints. TECHNIQUE: Breast tomosynthesis in addition to standard 2D mammography was performed. Current study was also evaluated with a Computer Aided Detection (CAD) system. COMPARISON: Comparison is made to exams dated: 09/17/2016 mammogram, 09/15/2015 mammogram, 09/13/2014 mamm ogram, 09/07/2013 mammogram, and 08/31/2012 mammogram - [facility]. BREAST COMPOSITION: There are scattered areas of fibroglandular density in both breasts. FINDINGS: There is a 5 mm nodular asymmetry in the lateral posterior right breast, best seen on the CC view but thought to project superiorly based on the MLO view. Although this could represent leticia l overlapping tissue, additional spot compression tomosynthesis views and possible ultrasound are rec ommended. No other suspicious mass, architectural distortion or cluster of microcalcifications is seen bilatera lly. IMPRESSION: ACR BI-RADS CATEGORY 0: INCOMPLETE EVALUATION: NEED ADDITIONAL IMAGING EVALUATION The 5 mm nodular asymmetry in the lateral, posterior right breast needs additional evaluation. The patient will be called to schedule an appointment. Approximately 10% of breast cancers are not detected with mammography. A negative mammographic report should not delay biopsy if a clinically suggestive mass is present. Rebecca Pendleton M.D. ay/:09/20/2017 16:14:59 Emergency Dispatcher: Allie BEGUM(Jimena)(Carmen), [facility] letter sent: Addl Imaging 0 BI-RADS Code: ACR BI-RADS Category 0: Incomplete Evaluation: Need Additional Imaging Evaluation
== END | disposition home or self-care (01) ==
LOC: C.MAMM 11:08
PROVIDERS: ATTEND Internal Medicine Geriatric Medicine
DX: Z12.31 Encounter for screening mammogram for malignant neoplasm of breast (principal); N64.89 Other specified disorders of breast

== ENCOUNTER → 2017-09-21 | Outpatient (CLI) | payer OTHER ==
[~2017-09-21] MED LIST changes: +GADAVIST IV PRN
--- NOTE | 2017-09-21 14:26 | DIAGNOSTIC IMAGING REPORT ---
MRI OF THE BRAIN WITHOUT AND WITH IV CONTRAST CLINICAL HISTORY: R51 persistent headaches COMPARISON STUDY: No previous studies for comparison. TECHNIQUE: MRI of the brain was performed from the vertex to the skull base utilizing various T1 and T2 weighted sequences. Following the IV administration of 5.9 mL of Gadavist contrast, additional enhanced images were obtained. FINDINGS: Sagittal T1, axial diffusion, proton density and T2 weighted axial, coronal FLAIR, and pre and post axial T1-weighted images were acquired. These were supplemented with post gadolinium coronal T1 weighted images. No intra or extra-axial mass lesions are visualized. Axial diffusion-weighted images reveal no evidence of acute or subacute infarction. There is no evidence of ventricular dilatation. Proton density T2-weighted and FLAIR images reveal scattered foci of increased T2 signal within the white matter, likely on a small vessel basis. There are no abnormal flow voids. There is no evidence of pathologic enhancement. IMPRESSION: 1. No acute intracranial findings 2. No evidence of acute or subacute infarction 3. No evidence of intracranial mass 4. Scattered foci of increased T2 and FLAIR signal within the white matter, likely on a small vessel basis Electronically signed by: Keith Lindsay M.D. 09/21/2017 2:24 PM Dictated Date/Time: 09/21/2017 2:22 PM
== END | disposition home or self-care (01) ==
LOC: C.MRIBC 13:07
PROVIDERS: ATTEND Physician Assistant Medical
DX: R51 Headache (principal)

== ENCOUNTER → 2017-09-26 | Outpatient (CLI) | payer OTHER ==
[~2017-09-26] MED LIST changes: -GADAVIST IV PRN
--- NOTE | 2017-09-26 14:48 | MAMMOGRAPHY REPORT ---
UNILATERAL RIGHT DIGITAL DIAGNOSTIC MAMMOGRAM TOMOSYNTHESIS AND TARGETED RIGHT ULTRASOUND: 09/26/2017 CLINICAL HISTORY: 72-year-old woman called back from screening mammography for a 5 mm nodular asymmet ry in the lateral posterior right breast, best seen on the cc view. TECHNIQUE: Spot compression right CC and MLO 2-D and tomosynthesis images were obtained. COMPARISON: Comparison is made to exams dated: 09/20/2017 mammogram, 09/17/2016 mammogram, 09/15/2015 mamm ogram, 09/13/2014 mammogram, 09/07/2013 mammogram, and 08/31/2012 mammogram - [facility]. BREAST COMPOSITION: There are scattered areas of fibroglandular density in the right breast. FINDINGS: The spot compression view of the right breast demonstrates at least partial effacement of t he 5 mm nodular asymmetry seen on the screening mammogram performed on 09/20/2017. No definite persi stent mass, area of architectural distortion or suspicious microcalcifications are seen in the visual ized right breast. There is an ovoid low-density 3.4 mm nodular asymmetry in the superior posterior right breast on the MLO view which appears similar to several available prior mammograms and could re present a cyst. Further evaluation with ultrasound was performed throughout the right upper outer qu adrant. Targeted ultrasound was performed in the upper outer quadrant of the right breast. In the 9:00 axis, 12 cm from the nipple, there is a small hypoechoic to anechoic cystic appearing mass versus possible cyst cluster measuring approximately 2.2 x 2.3 x 2.9 mm. Given the small size this is difficult for accurate sonographic characterization as cystic versus solid. However, other scattered anechoic sub centimeter cysts are seen slightly closer to the nipple in the 9:00 axis of the right breast and ther efore this most likely represents an additional cyst/benign fibrocystic changes. However, given that it does not definitely meet all of the criteria for a simple cyst, a short interval follow-up right diagnostic tomosynthesis mammogram and repeat targeted ultrasound is recommended to ensure stability in 6 months. IMPRESSION: ACR-BI-RADS CATEGORY 3: PROBABLY BENIGN, TARGETED ULTRASOUND ACR-BI-RADS CATEGORY 3: PRO BABLY BENIGN 1. The partially effacing 5 mm nodular asymmetry in the lateral posterior right breast may correlate with a possible cyst seen on ultrasound in the 9:00 right breast, 12 cm from the nipple. However, g iven the small size of this sonographic lesion, accurate characteristics of a benign simple cyst are not clearly identified. Therefore, a short interval follow-up right diagnostic tomosynthesis mammogr am and repeat targeted ultrasound is recommended to ensure stability in 6 months. 2. Numerous other tiny anechoic benign simple cysts are seen slightly more medially in the right breast on targeted ul trasound, compatible with benign fibrocystic change. These results and recommendations were discussed with the patient at the time of the exam. She tenta tively scheduled a follow-up appointment prior to leaving our department. Approximately 10% of breast cancers are not detected with mammography. A negative mammographic report should not delay biopsy if a clinically suggestive mass is present. Rebecca Pendleton M.D. ay/:09/26/2017 12:29:44 Central Office Trouble Shooter: Tami FONSECA)(Carmen), [facility] letter sent: Follow Up Recommended 3 BI-RADS Code: ACR-BI-RADS Category 3: Probably Benign Ultrasound BI-RADS: ACR-BI-RADS Category 3: Pr obably Benign
== END | disposition home or self-care (01) ==
LOC: C.MAMM 11:11
PROVIDERS: ATTEND Internal Medicine Geriatric Medicine
DX: R92.8 Other abnormal and inconclusive findings on diagnostic imaging of breast (principal); N64.89 Other specified disorders of breast

== ENCOUNTER → 2017-11-11 | Outpatient (CLI) | payer OTHER ==
[2017-11-11 14:57] LABS: ALBUMIN 3.2 gm/dl (3.4-5.0); ALT/SGPT 21 U/L (12-78); AST/SGOT 13 U/L (15-37); BLOOD UREA NITROGEN 17 mg/dl (7-18); CALCIUM 10.1 mg/dl (8.5-10.1); CARBON DIOXIDE 29 mmol/L (21-32); CREATININE 0.85 mg/dl (0.60-1.20); GLUCOSE 92 mg/dl (70-99); POTASSIUM 4.3 mmol/L (3.5-5.1); SODIUM 139 mmol/L (136-145)
[2017-11-11 15:00] LABS: ALKALINE PHOSPHATASE 92 U/L (45-117); CHOLESTEROL 157 mg/dl (0-200); LDL CHOLESTEROL CALCULATED 70 mg/dl; TOTAL PROTEIN 7.1 gm/dl (6.4-8.2)
[2017-11-12 06:55] LABS: HEMOGLOBIN A1C 5.7 % (4.5-5.6)
== END | disposition home or self-care (01) ==
LOC: C.LAB 12:51
PROVIDERS: ATTEND Physician Assistant Medical
DX: R73.9 Hyperglycemia, unspecified (principal); E03.9 Hypothyroidism, unspecified; E78.5 Hyperlipidemia, unspecified

== ENCOUNTER → 2017-12-26 | Outpatient (CLI) | payer OTHER | END | disposition home or self-care (01) | LOC: C.LAB 15:16 | PROVIDERS: ATTEND Physician Assistant Medical | DX: E03.9 Hypothyroidism, unspecified (principal) ==

== ENCOUNTER → 2018-04-24 | Outpatient (CLI) | payer OTHER ==
[~2018-04-24] MED LIST changes: +ASCO-63 PO; +LEVO137T3 PO; -LEVO150T9 PO; -LEVO5TAB2 PO; +MISCCAP80 PEG; -MONT1TAB3 PO; -NRN100 PO; -SIMV20TA2 PO; -TRMCR515 TOP
[2018-04-24 12:19] LABS: BASO % 0.2 %; BASO ABS # 0.01 K/uL (0-0.2); EOS % 2.6 %; EOS ABS # 0.12 K/uL (0-0.5); HEMATOCRIT 40.1 % (37-47); HEMOGLOBIN 13.3 g/dL (12.0-16.0); IG# 0.01 K/uL (0.00-0.02); LYMPH % 21.9 %; LYMPH ABS # 1.01 K/uL (1.2-3.4); MEAN CORPUSCULAR HEMOGLOBIN 30.9 pg (25-34); MEAN CORPUSCULAR HGB CONC 33.2 g/dl (32-36); MEAN PLATELET VOLUME 10.3 fL (7.4-10.4); MONO % 6.7 %; MONO ABS # 0.31 K/uL (0.11-0.59); NEUT % 68.4 %; NEUT ABS # 3.15 K/uL (1.4-6.5); PLATELET COUNT 214 K/uL (130-400); RED CELL DISTRIBUTION WIDTH CV 13.9 % (11.5-14.5); RED CELL DISTRIBUTION WIDTH SD 47.3 fL (36.4-46.3); WHITE BLOOD COUNT 4.61 K/uL (4.8-10.8)
[2018-04-24 12:45] LABS: HEMOGLOBIN A1C 5.8 % (4.5-5.6)
[2018-04-24 12:46] LABS: ALBUMIN 3.2 gm/dl (3.4-5.0); ALKALINE PHOSPHATASE 97 U/L (45-117); ALT/SGPT 20 U/L (12-78); AST/SGOT 14 U/L (15-37); BLOOD UREA NITROGEN 17 mg/dl (7-18); CALCIUM 9.6 mg/dl (8.5-10.1); CARBON DIOXIDE 25 mmol/L (21-32); CREATININE 0.83 mg/dl (0.60-1.20); GLUCOSE 89 mg/dl (70-99); POTASSIUM 3.9 mmol/L (3.5-5.1); SODIUM 140 mmol/L (136-145); TOTAL PROTEIN 6.7 gm/dl (6.4-8.2)
== END | disposition home or self-care (01) ==
LOC: C.LAB1850 09:45
PROVIDERS: ATTEND Internal Medicine Endocrinology, Diabetes & Metabolism
DX: E03.9 Hypothyroidism, unspecified (principal); E78.5 Hyperlipidemia, unspecified; R73.9 Hyperglycemia, unspecified; R92.8 Other abnormal and inconclusive findings on diagnostic imaging of breast; R60.9 Edema, unspecified; R53.83 Other fatigue

== ENCOUNTER 2021-12-14 12:12 | Observation (INO) ==
[2021-12-14 12:46] LABS: Basophils # (auto) 0.01 K/uL (0-0.2); Basophils % (auto) 0.2 %; Eosinophils # (auto) 0.07 K/uL (0-0.5); Eosinophils % (auto) 1.6 %; Hematocrit (blood only) 39.9 % (37-47); Hemoglobin 13.9 g/dL (12.0-16.0); Lymphocytes # (auto) 1.05 K/uL (1.2-3.4); Lymphocytes % (auto) 24.3 %; Mean Corpuscular Hemoglobin 31.9 pg (25-34); Mean Corpuscular Hgb Conc 34.8 g/dL (32-36); Mean Corpuscular Volume 91.5 fL (80-100); Mean Platelet Volume 9.7 fL (7.4-10.4); Monocytes # (auto) 0.33 K/uL (0.11-0.59); Monocytes % (auto) 7.6 %; Neutrophils # (auto) 2.86 K/uL (1.4-6.5); Neutrophils % (auto) 66.3 %; Platelet Count 215 K/uL (130-400); RDW Coefficient of Variation 13.3 % (11.5-14.5); RDW Standard Deviation 44.6 fL (36.4-46.3); Red Blood Count 4.36 M/uL (4.2-5.4); White Blood Count 4.32 K/uL (4.8-10.8)
[2021-12-14 13:17] LABS: Troponin I < 0.03 ng/ml (0-0.04)
--- NOTE | 2021-12-14 13:17 | Emergency Department Note ---
History of Present Illness General Chief Complaint: Chest Pain Stated Complaint: CHEST PAIN Time Seen by Provider: 12/14/21 13:06 History of Present Illness Provider Complaint: chest pain Onset (ago): week(s) Onset (Weeks): 1 Duration: intermittent Onset: during exertion Pain Location: substernal Pain Radiation: none Severity: moderate Current Pain Intensity: 0 Quality: + tightness, + heaviness and + dull Relieved By: + rest Exacerbated By: + exertion Context: no recent illness, no recent surgery, no recent immobilization, no recent travel, no trauma/injury, no new medications or no history of DVT/PE Associated symptoms: no nausea, no vomiting, no diaphoresis, no dyspnea, no palpitations, no fever, no cough or no leg swelling Treatments prior to arrival: none Home Medications Medication Instructions Recorded Confirmed Type cholecalciferol (vitamin D3) 50 2,000 units PO QAM cap 06/09/19 12/14/21 History mcg (2,000 unit) capsule furosemide 20 mg tablet 20 mg PO DAILY PRN #15 tab 05/14/20 12/14/21 Rx baclofen 5 mg tablet 5 - 10 mg PO HS PRN tab 11/04/20 12/14/21 History hydroxyzine HCl 10 mg tablet 10 mg PO DAILY PRN #30 tab 01/29/21 12/14/21 Rx acetaminophen 500 mg tablet 1,000 mg PO Q6H PRN #1 tab 06/15/21 12/14/21 History oxybutynin chloride 5 mg 5 mg PO QAM tab 06/15/21 12/14/21 History tablet,extended release 24 hr levothyroxine 150 mcg tablet 150 mcg PO QAM 06/24/21 12/14/21 History omeprazole 40 mg capsule,delayed 40 mg PO BID #60 cap 06/29/21 12/14/21 Rx release gabapentin 100 mg capsule 200 mg PO PM #180 cap 08/27/21 12/14/21 Rx escitalopram oxalate 5 mg tablet 5 mg PO HS #90 tab 10/22/21 12/14/21 Rx meclizine 25 mg tablet 12.5 - 25 mg PO TID PRN 12/14/21 12/14/21 History Allergies Allergy/AdvReac Type Severity Reaction Status Date / Time Influenza Virus Vaccines Allergy Mild itchy Verified 12/14/21 14:56 Sulfa (Sulfonamide Allergy Mild PRURITIS Verified 12/14/21 14:56 Antibiotics) atorvastatin AdvReac Mild GI UPSET Verified 12/14/21 14:56 codeine AdvReac Mild GI UPSET Verified 12/14/21 14:56 oxycodone AdvReac Mild GI UPSET Verified 12/14/21 14:56 Past Med/Surg History Medical History Bilateral carpal tunnel syndrome Cervical osteoarthritis Cervical spinal stenosis Depression with anxiety Dyslipidemia Edema Female stress incontinence Gastroesophageal reflux disease Hepatic steatosis Hypothyroidism Lumbar degenerative disc disease Vitamin D deficiency Surgical History H/O colonoscopy H/O: hysterectomy ORQUIDEA, BSO History of bilateral cataract extraction History of carpal tunnel surgery right History of dilation and curettage History of laparoscopy Excision of Gynecologic Lesions History of repair of right rotator cuff History of total left hip replacement History of total left knee replacement (TKR) History of total replacement of right hip History of total right knee replacement (TKR) Family History Unknown Diabetes Cardiac disorder Hypothyroidism Hypertension Parkinson disease Mother Alzheimer disease Cardiac disorder Myocardial infarction Hypertension Sister Diabetes Other No family history of adverse response to anesthesia Denies family history of Ovarian cancer Prostate cancer Breast cancer Colorectal cancer Social History Smoking Status: Never smoker Second Hand Exposure: No; Hx Alcohol Use: No Hx Substance Use: No Preferred Language: Niuean Communication Ability: Effective Visual Impairment: No Limitations Hearing Ability: Normal Senior Java Engineer Required: No Beliefs That Will Affect Care: None marital status: Current Living Situation: Spouse current occupational status: retired Feels Safe at Home: Yes Dental Care, Regularly: Yes Physical Activity Frequency: 1-2 Times per Week Seatbelt Use: always Assistive Devices: Glasses Review of Systems A total of 10 systems reviewed and were otherwise negative Physical Exam Vital Signs Vital Signs - 24 hr 12/14/21 12:19 12/14/21 12:29 12/14/21 15:00 Temperature 37.0 C Temperature Source Temporal Artery Scan Pulse Rate 73 61 Pulse Rate from SpO2 Sensor Respiratory Rate 18 14 Respiratory Effort / Characteristics Non-Labored Spontaneous Respiratory Depth Normal Respiratory Pattern Regular Blood Pressure 177/85 H 165/84 H Blood Pressure Mean 115 111 Blood Pressure Position Sitting Pulse Oximetry 98 98 Oxygen Delivery Method Room Air Room Air Room Air Sepsis Recent Fever Within 48 Hours No Sepsis New/Unexplained Change in Mental Status N/A Sepsis Action Taken by Nursing No Action Required 12/14/21 15:11 12/14/21 15:30 Temperature Temperature Source Pulse Rate 61 66 Pulse Rate from SpO2 Sensor 61 Respiratory Rate 19 16 Respiratory Effort / Characteristics Respiratory Depth Respiratory Pattern Blood Pressure Blood Pressure Mean Blood Pressure Position Pulse Oximetry 98 Oxygen Delivery Method Room Air Sepsis Recent Fever Within 48 Hours Sepsis New/Unexplained Change in Mental Status Sepsis Action Taken by Nursing Physical Exam GENERAL: She is oriented to person, place, and time. She appears well-developed and well-nourished. She does not appear distressed. HENT: Exam performed. -Head: Normocephalic and atraumatic. -Right Ear: External ear normal. No mastoid tenderness. -Left Ear: External ear normal. No mastoid tenderness. -Mouth/Throat: The oropharynx is clear and moist. No trismus in the jaw. No dental abscesses or uvula swelling. No oropharyngeal exudate or tonsillar abscesses. EYES: Conjunctivae and EOM are normal. Pupils are equal, round, and reactive to light. Right eye exhibits no discharge. Left eye exhibits no discharge. No scleral icterus. NECK: Normal range of motion. Neck supple. No JVD present. No spinous process tenderness present. No carotid bruit present. No rigidity. No tracheal deviation and normal range of motion present. No Brudzinski's sign and no Kernig's sign noted. CV: Normal rate, regular rhythm, normal heart sounds and intact distal pulses. There is no peripheral edema. Palpable radial pulses bue. PULM/CHEST: Effort normal and breath sounds normal. No respiratory distress. No stridor. She has no wheezes. She has no rales. -Chest Wall: She exhibits no tenderness. ABD: The abdomen is soft. Bowel sounds are normal. She has no distension. No mass is present. There is no tenderness. There is no rebound, no guarding, no Wylie's sign and no tenderness at McBurney's point. Rovsig negative MUSC/SKEL: Normal range of motion. There is no peripheral edema, tenderness or deformity. LYMPH: No cervical adenopathy. NEURO: She is alert and oriented to person, place, and time. She has normal strength. No cranial nerve deficit or sensory deficit. Coordination and gait normal. GCS eye subscore is 4. GCS verbal subscore is 5. GCS motor subscore is 6. Cerebellar tests wnl. SKIN: Skin is warm and dry. She is not diaphoretic. PSYCH: She has a normal mood and affect. Behavior is normal. Judgment and thought content normal. Course Course 1306: The patient was evaluated in room A11B. A complete history and physical exam was performed Cardiac monitoring: An order was placed for continuous cardiac monitoring. The monitor shows a rate of 70 with sinus rhythm 1430:Vital signs stable. Labs and imaging within normal limits. On maurisio ssessment the patient reports she is not having any current chest pain but reports that even with mild exertion she has she was getting addressed to get a chest x-ray she started feeling chest tightness. She stated completely resolved when she sat in the hospital bed. [facility] out ACS work-up. Dr. Hinojosa team notified. Administered Medications Discontinued Medications Aspirin (Aspirin Chew 324 Mg) 324 mg PO NOW STA Stop: 12/14/21 14:31 Last Admin: 12/14/21 15:10 Dose: 324 mg Documented by: [id number] Nitroglycerin (Nitroglycerin 2% Ointment 30gm Tube) 1 inch EXT ONE STA Stop: 12/14/21 15:14 Last Admin: 12/14/21 15:35 Dose: 1 inch Documented by: [id number] Medical Decision Making Laboratory Data Result diagrams: 12/14/21 12:35 12/14/21 12:35 Labs: Lab Results 12/14/21 12/14/21 12/14/21 Range/Units 12:35 12:35 12:35 WBC 4.32 L (4.8-10.8) K/uL RBC 4.36 (4.2-5.4) M/uL Hgb 13.9 (12.0-16.0) g/dL Hct 39.9 (37-47) % MCV 91.5 (80-100) fL MCH 31.9 (25-34) pg MCHC 34.8 (32-36) g/dL RDW Std Deviation 44.6 (36.4-46.3) fL RDW Coeff of Nadir 13.3 (11.5-14.5) % Plt Count 215 (130-400) K/uL MPV 9.7 (7.4-10.4) fL Immature Gran % (Auto) 0.0 % Neut % (Auto) 66.3 % Lymph % (Auto) 24.3 % [place] % (Auto) 7.6 % Eos % (Auto) 1.6 % Baso % (Auto) 0.2 % Neut # (Auto) 2.86 (1.4-6.5) K/uL Lymph # (Auto) 1.05 L (1.2-3.4) K/uL [place] # (Auto) 0.33 (0.11-0.59) K/uL Eos # (Auto) 0.07 (0-0.5) K/uL Baso # (Auto) 0.01 (0-0.2) K/uL Immature Gran # (Auto) 0.00 (0.00-0.02) K/uL PT (9.0-12.0) Seconds INR (0.9-1.1) APTT (21.0-31.0) Seconds PTT Ratio Sodium 139 (136-145) mmol/L Potassium 4.2 (3.5-5.1) mmol/L Chloride 107 (98-107) mmol/L Carbon Dioxide 27 (21-32) mmol/L Anion Gap 5 (3-11) BUN 19 (6-23) mg/dl Creatinine 0.78 (0.6-1.2) mg/dl Est Cr Clr Drug Dosing 62.1 ml/min Est GFR ( Amer) 84.4 ml/min Est GFR (Non-Af Amer) 72.8 ml/min BUN/Creatinine Ratio 24.4 H (10-20) Glucose 96 (70-99(Fasting)) mg/dl Calcium 10.5 H (8.5-10.1) mg/dl Total Bilirubin 0.6 (0.2-1.0) mg/dl AST 19 (13-39) U/L ALT 15 (7-52) U/L Alkaline Phosphatase 82 (34-104) U/L Troponin I < 0.03 (0-0.04) ng/ml B-Natriuretic Peptide 166 H (0-100) pg/ml Total Protein 7.0 (6.0-8.3) gm/dl Albumin 4.0 (3.4-5.0) gm/dl Globulin 3.0 (2.5-4.0) gm/dl Albumin/Globulin Ratio 1.3 (0.9-2) Lipase 17 (11-82) U/L SARS-CoV-2, RNA, NAAT (NEGATIVE) 12/14/21 12/14/21 12/14/21 Range/Units 12:35 15:07 15:30 WBC (4.8-10.8) K/uL RBC (4.2-5.4) M/uL Hgb (12.0-16.0) g/dL Hct (37-47) % MCV (80-100) fL MCH (25-34) pg MCHC (32-36) g/dL RDW Std Deviation (36.4-46.3) fL RDW Coeff of Nadir (11.5-14.5) % Plt Count (130-400) K/uL MPV (7.4-10.4) fL Immature Gran % (Auto) % Neut % (Auto) % Lymph % (Auto) % [place] % (Auto) % Eos % (Auto) % Baso % (Auto) % Neut # (Auto) (1.4-6.5) K/uL Lymph # (Auto) (1.2-3.4) K/uL [place] # (Auto) (0.11-0.59) K/uL Eos # (Auto) (0-0.5) K/uL Baso # (Auto) (0-0.2) K/uL Immature Gran # (Auto) (0.00-0.02) K/uL PT 10.2 (9.0-12.0) Seconds INR 1.0 (0.9-1.1) APTT 26.4 (21.0-31.0) Seconds PTT Ratio 1.0 Sodium (136-145) mmol/L Potassium (3.5-5.1) mmol/L Chloride (98-107) mmol/L Carbon Dioxide (21-32) mmol/L Anion Gap (3-11) BUN (6-23) mg/dl Creatinine (0.6-1.2) mg/dl Est Cr Clr Drug Dosing ml/min Est GFR ( Amer) ml/min Est GFR (Non-Af Amer) ml/min BUN/Creatinine Ratio (10-20) Glucose (70-99(Fasting)) mg/dl Calcium (8.5-10.1) mg/dl Total Bilirubin (0.2-1.0) mg/dl AST (13-39) U/L ALT (7-52) U/L Alkaline Phosphatase (34-104) U/L Troponin I < 0.03 (0-0.04) ng/ml B-Natriuretic Peptide (0-100) pg/ml Total Protein (6.0-8.3) gm/dl Albumin (3.4-5.0) gm/dl Globulin (2.5-4.0) gm/dl Albumin/Globulin Ratio (0.9-2) Lipase (11-82) U/L SARS-CoV-2, RNA, NAAT NEGATIVE (NEGATIVE) Imaging Data Chest x-ray: Radiologist's impression: Chest X-Ray 12/14/21 12:24 SINGLE VIEW CHEST CLINICAL HISTORY: Atypical chest pain. FINDINGS: An AP, portable, upright chest radiograph is compared to study dated 10/29/2021. The heart is top normal for projection noting atherosclerotic calcification of the thoracic aorta. There is mild bibasilar scarring/atelectasis. The lungs and pleural spaces are otherwise clear. No pneumothorax is seen. The skeletal structures are osteopenic. The bony thorax is grossly intact. Arthritic change is seen in the shoulders. IMPRESSION: No active disease in the chest. ACT 112: Negative or not required by law. Electronically signed by: Mj Guzman M.D. 12/14/2021 1:53 PM ECG Data Indication: chest pain Rate (beats per minute): 71 Rhythm: normal sinus Findings: no ST depression, no ST elevation or no prolonged QT MDM Narrative Vital signs stable. Labs and imaging within normal limits. On reassessment the patient reports she is not having any current chest pain but reports that even with mild exertion she has she was getting addressed to get a chest x-ray she started feeling chest tightness. She stated completely resolved when she sat in the hospital bed. [facility] rule out ACS work-up. Dr. Hinojosa team notified. Impression & Plan Chest pain Discharge Plan Visit Data Chief Complaint: Chest Pain Stated Complaint: CHEST PAIN Discharge Problem: Chest pain Patient Disposition: Being Evaluated by Hospitalist Forms Stand Alone Forms: [facility] Prescriptions Prescriptions: No Action furosemide 20 mg tablet 20 mg PO DAILY PRN (Reason: edema) Qty: 15 RF: 0 gabapentin 100 mg capsule 200 mg PO PM Qty: 180 RF: 3 escitalopram oxalate 5 mg tablet 5 mg PO HS Qty: 90 RF: 3 baclofen 5 mg tablet 5 - 10 mg PO HS PRN (Reason: neck pain) RF: 0 oxybutynin chloride 5 mg tablet extended release 24hr 5 mg PO QAM RF: 0 cholecalciferol (vitamin D3) 2,000 unit capsule 2,000 units PO QAM RF: 0 acetaminophen 500 mg tablet 1,000 mg PO Q6H PRN (Reason: Pain) Qty: 1 RF: 0 hydroxyzine HCl 10 mg tablet 10 mg PO DAILY PRN (Reason: itching/sleeplessness) Qty: 30 RF: 5 meclizine 25 mg tablet 12.5 - 25 mg PO TID PRN (Reason: dizziness or vertigo) RF: 0 levothyroxine 150 mcg tablet 150 mcg PO QAM RF: 0 omeprazole 40 mg capsule,delayed release(DR/EC) 40 mg PO BID Qty: 60 RF: 5 Referrals Referrals: Marguerite Perez MD [Primary Care Provider] -
[2021-12-14 13:24] LABS: Alanine Aminotransferase 15 U/L (7-52); Albumin Globulin Ratio 1.3 (0.9-2); Alkaline Phosphatase 82 U/L (34-104); Anion Gap 5 (3-11); Aspartate Aminotransferase 19 U/L (13-39); BUN Creatinine Ratio 24.4 (10-20); Bilirubin,Total 0.6 mg/dl (0.2-1.0); Blood Urea Nitrogen 19 mg/dl (6-23); Calcium 10.5 mg/dl (8.5-10.1); Carbon Dioxide 27 mmol/L (21-32); Chloride 107 mmol/L (98-107); Creatinine Clr Calc Pharmacy 62.1 ml/min; Est GFR (African American) 84.4 ml/min; Est GFR (Non-African American) 72.8 ml/min; Glucose 96 mg/dl (70-99(Fasting)); Lipase 17 U/L (11-82); Potassium 4.2 mmol/L (3.5-5.1); Sodium 139 mmol/L (136-145)
--- NOTE | 2021-12-14 13:55 | XRay Report ---
SINGLE VIEW CHEST CLINICAL HISTORY: Atypical chest pain. FINDINGS: An AP, portable, upright chest radiograph is compared to study dated 10/29/2021. The heart i s top normal for projection noting atherosclerotic calcification of the thoracic aorta. There is mild bibasilar scarring/atelectasis. The lungs and pleural spaces are otherwise clear. No pneumothorax is seen. The skeletal structures are osteopenic. The bony thorax is grossly intact. Arthritic change is seen in the shoulders. IMPRESSION: No active disease in the chest. ACT 112: Negative or not required by law. Electronically signed by: Mj Guzman M.D. 12/14/2021 1:53 PM
[2021-12-14] MEDS ORDERED: ASPIRIN CHEW 324 MG PO STA (14:30)
--- NOTE | 2021-12-14 14:40 | History & Physical Report ---
Date of Service December 14, 2021 Assessment & Plan (1) Unstable angina: Plan: History concerning for unstable angina with escalating symptoms ASA 324mg PO given in ER Metoprolol 25mg PO BID Start nitro paste given elevated BP in the ER, d/c if sBP < 100 Discussed with cardiology and will hold off heparin IV for now Lipid panel and HbA1C in AM Consult cardiology to consider straight to cath vs. dobutamine stress echo (2) Hypothyroidism: Plan: TSH with AM labs. Notably TSH 0.257 in Oct 2021. No free T4 performed at that time. Continue levothyroxine 150 mcg PO daily (3) Gastroesophageal reflux disease: Plan: Prior history of gastric ulcer noted Switch omeprazole for pantoprazole per hospital formulary (4) Female stress incontinence: Plan: Continue oxybutynin (5) Depression with anxiety: Plan: Continue Lexapro Plan: VTE Prophylaxis - chemical deferred Diet - heart healthy Disposition - observation status to PCU Admission and Anticipated Discharge Date Admission Date: December 14, 2021 History of Present Illness Chief Complaint: Chest pain Primary Care Provider: Marguerite Perez MD Alexandrea Evans is a 76 year old female who presents to the ER with chest pain. She reports new onset exertional substernal chest pain getting increasingly worse over the last week. Lasts for a few minutes at a time. Occasional radiation to her left arm. She last had chest pain about an hour before being seen (around 2pm) occurred on minimal exertion, while putting on her gown. She reports the pain has stayed about the same, always when active but increasing in frequency over the last week. She never has it at rest. In the ER EKG was mildly concerning for TWI in inferior leads. Initial troponin negative. HEART score 5 (moderate). She was referred to medicine for admission and ongoing management of chest pain. Allergies Allergy/AdvReac Type Severity Reaction Status Date / Time Influenza Virus Vaccines Allergy Mild itchy Verified 12/14/21 14:56 Sulfa (Sulfonamide Allergy Mild PRURITIS Verified 12/14/21 14:56 Antibiotics) atorvastatin AdvReac Mild GI UPSET Verified 12/14/21 14:56 codeine AdvReac Mild GI UPSET Verified 12/14/21 14:56 oxycodone AdvReac Mild GI UPSET Verified 12/14/21 14:56 Home Medications Medication Instructions Recorded Confirmed Type cholecalciferol (vitamin D3) 50 2,000 units PO QAM cap 06/09/19 12/14/21 History mcg (2,000 unit) capsule furosemide 20 mg tablet 20 mg PO DAILY PRN #15 tab 05/14/20 12/14/21 Rx baclofen 5 mg tablet 5 - 10 mg PO HS PRN tab 11/04/20 12/14/21 History hydroxyzine HCl 10 mg tablet 10 mg PO DAILY PRN #30 tab 01/29/21 12/14/21 Rx acetaminophen 500 mg tablet 1,000 mg PO Q6H PRN #1 tab 06/15/21 12/14/21 History oxybutynin chloride 5 mg 5 mg PO QAM tab 06/15/21 12/14/21 History tablet,extended release 24 hr levothyroxine 150 mcg tablet 150 mcg PO QAM 06/24/21 12/14/21 History omeprazole 40 mg capsule,delayed 40 mg PO BID #60 cap 06/29/21 12/14/21 Rx release gabapentin 100 mg capsule 200 mg PO PM #180 cap 08/27/21 12/14/21 Rx escitalopram oxalate 5 mg tablet 5 mg PO HS #90 tab 10/22/21 12/14/21 Rx meclizine 25 mg tablet 12.5 - 25 mg PO TID PRN 12/14/21 12/14/21 History Past Med/Surg History Medical History Bilateral carpal tunnel syndrome Cervical osteoarthritis Cervical spinal stenosis Depression with anxiety Dyslipidemia Edema Female stress incontinence Gastroesophageal reflux disease Hepatic steatosis Hypothyroidism Lumbar degenerative disc disease Vitamin D deficiency Surgical History H/O colonoscopy H/O: hysterectomy ORQUIDEA, BSO History of bilateral cataract extraction History of carpal tunnel surgery right History of dilation and curettage History of laparoscopy Excision of Gynecologic Lesions History of repair of right rotator cuff History of total left hip replacement History of total left knee replacement (TKR) History of total replacement of right hip History of total right knee replacement (TKR) Family History Unknown Diabetes Cardiac disorder Hypothyroidism Hypertension Parkinson disease Mother Alzheimer disease Cardiac disorder Myocardial infarction Hypertension Sister Diabetes Other No family history of adverse response to anesthesia Denies family history of Ovarian cancer Prostate cancer Breast cancer Colorectal cancer Social History Smoking Status: Never smoker Second Hand Exposure: No; Hx Alcohol Use: No Hx Substance Use: No Preferred Language: Icelandic Communication Ability: Effective Visual Impairment: No Limitations Hearing Ability: Normal Log Sawyer Required: No Beliefs That Will Affect Care: None marital status: Current Living Situation: Spouse current occupational status: retired Other Information That Helps Us Care for You: No Feels Safe at Home: Yes Safety Concerns: Feels Safe At This Time Dental Care, Regularly: Yes Physical Activity Frequency: 1-2 Times per Week Seatbelt Use: always Assistive Devices: Glasses Review of Systems Review of Systems: All systems reviewed & are unremarkable except as noted in HPI & below Physical Exam Constitutional: WD/WN, vitals as above Eyes: + anicteric sclerae; normal pupil size ENMT: external ear and nose normal, oropharynx normal Neck: trachea midline, no thyromegaly Cardiovascular: RRR, no murmur, no edema Extremities: normal capillary refill; no calf tenderness Gastrointestinal (Abdomen): Inspection/Auscultation: normal bowel sounds Percussion/Palpation: abdomen soft; abdomen nontender, no guarding and abdomen not rigid Musculoskeletal: no cyanosis or clubbing, extremities motor strength 5/5 Skin: no rashes, warm and dry Neurologic: moves all extremities and awake; not confused Psychiatric: A+Ox3, euthymic affect Genitourinary: no CVA tenderness Results & Data Results & Data ([facility]) Vital Signs (Past 12 Hours) Vital Signs Temp Pulse Resp BP Pulse Ox 12/14/21 12:19 37.0 C 73 18 177/85 H 98 Laboratory Results Abnormal lab results 12/14/21 12/14/21 12/14/21 Range/Units 12:35 12:35 12:35 WBC 4.32 L (4.8-10.8) K/uL Lymph # (Auto) 1.05 L (1.2-3.4) K/uL BUN/Creatinine Ratio 24.4 H (10-20) Calcium 10.5 H (8.5-10.1) mg/dl B-Natriuretic Peptide 166 H (0-100) pg/ml Diagnostic Findings SINGLE VIEW CHEST CLINICAL HISTORY: Atypical chest pain. FINDINGS: An AP, portable, upright chest radiograph is compared to study dated 10/29/2021. The heart is top normal for projection noting atherosclerotic calcifi cation of the thoracic aorta. There is mild bibasilar scarring/atelectasis. The lungs and pleural spaces are otherwise clear. No pneumothorax is seen. The skeletal structures are osteopenic. The bony thorax is grossly intact. Arthritic change is seen in the shoulders. IMPRESSION: No active disease in the chest. Medications Administered ER Medications Given: ASA 324mg PO ECG Indication: chest pain Rate (beats per minute): 71 Rhythm: normal sinus Findings: + T-wave inversion (Inferior) Comparison ECG Date: from (March 08, 2018) Change: the following changes noted (TWI is new) Code Status & VTE Plan Code Status Full VTE Prophylaxis Plan VTE Prophylaxis will be ordered: No Reason for no VTE drug order: Treatment not indicated Reason for no VTE mechanical prophylaxis: Treatment not indicated PG Care Time/CCT Total # of Minutes Spent Total Time Spent with Patient: Total time spent is greater than 50% in coordination of care (as documented) at patient's floor/unit and/or counseling patient: Coding Level of Care Code INT OBSERVATION CARE 50M LVL 2 Diagnoses Unstable angina I20.0 Hypothyroidism E03.9 Gastroesophageal reflux disease K21.9 Female stress incontinence N39.3 Depression with anxiety F41.8
[2021-12-14] MEDS ORDERED: NITROGLYCERIN 2% OINTMENT 30GM TUBE EXT STA (15:13)
[2021-12-14 15:37] LABS: Partial Thromboplastin Time 26.4 Seconds (21.0-31.0); Prothrombin Time 10.2 Seconds (9.0-12.0)
[2021-12-14 16:24] LABS: Troponin I < 0.03 ng/ml (0-0.04)
--- NOTE | 2021-12-14 16:33 | Cardiology Consultation ---
Date of Consultation December 14, 2021 Assessment & Plan (1) Chest pain: (2) HBP (high blood pressure): 1. Chest discomfort: Her chest discomfort is quite atypical and that it only lasts seconds, and although it occurs with activity the activities that trigger it or movement such as getting on her gown in the emergency room or cleaning at home, she does not get it climbing stairs. I suspect it is noncardiac although we can be misled. I would recommend watching her overnight, as long as her troponin remains undetectable and her electrocardiogram does not change I would plan on a stress test in the morning. She cannot walk on a treadmill therefore I will arrange this as a dobutamine stress test. 2. Hypertension: Her blood pressure has been significantly elevated recently, I am going to start her on metoprolol to help with blood pressure and since there is a possibility of ischemia a beta-ko would be beneficial. History of Present Illness Reason for Consultation: Chest pain History of Present Illness This is a 76-year-old woman who has a history of dyslipidemia and controlled dependent edema who presents with about 1 week of intermittent chest discomfort. She describes falling sideways into a door frame about a week ago and ever since then she has been troubled by intermittent substernal and left shoulder chest discomfort. She describes the symptoms as occurring during the daytime and not at night, being associated with activities although on close questioning it does not sound as though they are strictly exertional. She describes epi sodes occurring with doing various activities, including today in the emergency room when she was putting on her down, but not with climbing steps and she tells me that she has 14 steps at home and has no difficulty doing that and does not get chest discomfort when she does that. The discomfort is typically a sharp pain lasting a few seconds. Today she did have a more dull pain but still it only last a few seconds. She says it does not last minutes. It is not associated with other symptoms such as palpitations, lightheadedness, dizziness, shortness of breath or nausea. It does not seem to be getting better over the last week, possibly worse but she only gets it several times per day. Her history lists dyslipidemia as a diagnosis and she is not on a cholesterol medication, she does list an adverse reaction to atorvastatin. Her mother had coronary disease and myocardial infarction in her 80s, her father was hit by car at around that age. She has never had a stress test. Her initial evaluation is unremarkable with a troponin of less than 0.03 and electrocardiogram which does not show acute changes. Chest x-ray is unremarkable. She is hypertensive in the emergency room. Allergies Allergy/AdvReac Type Severity Reaction Status Date / Time Influenza Virus Vaccines Allergy Mild itchy Verified 12/14/21 14:56 Sulfa (Sulfonamide Allergy Mild PRURITIS Verified 12/14/21 14:56 Antibiotics) atorvastatin AdvReac Mild GI UPSET Verified 12/14/21 14:56 codeine AdvReac Mild GI UPSET Verified 12/14/21 14:56 oxycodone AdvReac Mild GI UPSET Verified 12/14/21 14:56 Home Medications Medication Instructions Recorded Confirmed Type cholecalciferol (vitamin D3) 50 2,000 units PO QAM cap 06/09/19 12/14/21 History mcg (2,000 unit) capsule furosemide 20 mg tablet 20 mg PO DAILY PRN #15 tab 05/14/20 12/14/21 Rx baclofen 5 mg tablet 5 - 10 mg PO HS PRN tab 11/04/20 12/14/21 History hydroxyzine HCl 10 mg tablet 10 mg PO DAILY PRN #30 tab 01/29/21 12/14/21 Rx acetaminophen 500 mg tablet 1,000 mg PO Q6H PRN #1 tab 06/15/21 12/14/21 History oxybutynin chloride 5 mg 5 mg PO QAM tab 06/15/21 12/14/21 History tablet,extended release 24 hr levothyroxine 150 mcg tablet 150 mcg PO QAM 06/24/21 12/14/21 History omeprazole 40 mg capsule,delayed 40 mg PO BID #60 cap 06/29/21 12/14/21 Rx release gabapentin 100 mg capsule 200 mg PO PM #180 cap 08/27/21 12/14/21 Rx escitalopram oxalate 5 mg tablet 5 mg PO HS #90 tab 10/22/21 12/14/21 Rx meclizine 25 mg tablet 12.5 - 25 mg PO TID PRN 12/14/21 12/14/21 History Patient History Medical History Bilateral carpal tunnel syndrome Cervical osteoarthritis Cervical spinal stenosis Depression with anxiety Dyslipidemia Edema Female stress incontinence Gastroesophageal reflux disease Hepatic steatosis Hypothyroidism Lumbar degenerative disc disease Vitamin D deficiency Surgical History H/O colonoscopy H/O: hysterectomy ORQUIDEA, BSO History of bilateral cataract extraction History of carpal tunnel surgery right History of dilation and curettage History of laparoscopy Excision of Gynecologic Lesions History of repair of right rotator cuff History of total left hip replacement History of total left knee replacement (TKR) History of total replacement of right hip History of total right knee replacement (TKR) Family History Unknown Diabetes Cardiac disorder Hypothyroidism Hypertension Parkinson disease Mother Alzheimer disease Cardiac disorder Myocardial infarction Hypertension Sister Diabetes Other No family history of adverse response to anesthesia Denies family history of Ovarian cancer Prostate cancer Breast cancer Colorectal cancer Social History Smoking Status: Never smoker Second Hand Exposure: No; Hx Alcohol Use: No Hx Substance Use: No Preferred Language: Cook Islander Communication Ability: Effective Visual Impairment: No Limitations Hearing Ability: Normal Hydro Generation Manager Required: No Beliefs That Will Affect Care: None marital status: Current Living Situation: Spouse current occupational status: retired Other Information That Helps Us Care for You: No Feels Safe at Home: Yes Safety Concerns: Feels Safe At This Time Dental Care, Regularly: Yes Physical Activity Frequency: 1-2 Times per Week Seatbelt Use: always Assistive Devices: Glasses Review of Systems Review of Systems: All systems reviewed & are unremarkable except as noted in HPI & below Physical Exam Physical Exam: Constitutional: Alert, cooperative and in no distress. HEENT: Unremarkable Neck: No jugular venous distention, carotid pulses are normal and equal bilaterally without bruits. Pulmonary: Clear to auscultation bilaterally. Cardiac: Regular rhythm with no murmur, gallop or rub. Abdomen: Soft, nontender with normal bowel sounds. Extremities: No edema. Distal pulses intact. Neurologic: No focal findings. Gait is steady. Skin: No rash, ecchymoses or petechiae. Results & Data ([facility]) Vital Signs (Past 12 Hours) Vital Signs Temp Pulse Resp BP Pulse Ox 12/14/21 15:30 66 16 12/14/21 15:11 61 19 98 12/14/21 15:00 61 14 165/84 H 98 12/14/21 12:19 37.0 C 73 18 177/85 H 98 Laboratory Results Cardiac Enzymes 12/14/21 12/14/21 12/14/21 Range/Units 12:35 12:35 15:30 AST 19 (13-39) U/L Troponin I < 0.03 < 0.03 (0-0.04) ng/ml B-Natriuretic Peptide 166 H (0-100) pg/ml Coagulation 12/14/21 12/14/21 Range/Units 12:35 12:35 PT 10.2 (9.0-12.0) Seconds APTT 26.4 (21.0-31.0) Seconds B-Natriuretic Peptide 166 H (0-100) pg/ml CBC 12/14/21 Range/Units 12:35 WBC 4.32 L (4.8-10.8) K/uL RBC 4.36 (4.2-5.4) M/uL Hgb 13.9 (12.0-16.0) g/dL Hct 39.9 (37-47) % Plt Count 215 (130-400) K/uL Neut # (Auto) 2.86 (1.4-6.5) K/uL Lymph # (Auto) 1.05 L (1.2-3.4) K/uL [place] # (Auto) 0.33 (0.11-0.59) K/uL Eos # (Auto) 0.07 (0-0.5) K/uL Baso # (Auto) 0.01 (0-0.2) K/uL Comprehensive Metabolic Panel 12/14/21 Range/Units 12:35 Sodium 139 (136-145) mmol/L Potassium 4.2 (3.5-5.1) mmol/L Chloride 107 (98-107) mmol/L Carbon Dioxide 27 (21-32) mmol/L BUN 19 (6-23) mg/dl Creatinine 0.78 (0.6-1.2) mg/dl Glucose 96 (70-99(Fasting)) mg/dl Calcium 10.5 H (8.5-10.1) mg/dl AST 19 (13-39) U/L ALT 15 (7-52) U/L Alkaline Phosphatase 82 (34-104) U/L Total Protein 7.0 (6.0-8.3) gm/dl Albumin 4.0 (3.4-5.0) gm/dl Intake and Output 12/14/21 12/14/21 12/14/21 06:59 14:59 22:59 Other: Weight 90.4 kg Weight Measurement Method Chair Scale Patient Weight 12/15/21 06:59 Weight 90.4 kg Diagnostic Findings Telemetry: Sinus rhythm with no significant arrhythmia. PG Care Time/CCT Total # of Minutes Spent Total Time Spent with Patient: Total time spent is greater than 50% in coordination of care (as documented) at patient's floor/unit and/or counseling patient: Coding Level of Care Code 90806 Initial Inpt Care Lvl 3 Diagnoses Chest pain R07.9 Chest pain type: unspecified HBP (high blood pressure) I10 Hypertension type: unspecified (1) Chest pain Chest pain type: unspecified Qualified Code(s): R07.9 - Chest pain, unspecified (2) HBP (high blood pressure) Hypertension type: unspecified Qualified Code(s): I10 - Essential (primary) hypertension
[2021-12-14] MEDS ORDERED: NITROGLYCERIN SL 0.4 MG/TAB TAB SL PRN (18:48)
[2021-12-14] MEDS ORDERED: ACETAMINOPHEN 325 MG TAB PO PRN (18:48)
[2021-12-14] MEDS ORDERED: ONDANSETRON INJ 2 MG/ML 2 ML VIAL IV PRN (18:48)
[2021-12-14] MEDS: NITROGLYCERIN 2% OINTMENT 30GM TUBE EXT SCH (19:50)
[2021-12-14] MEDS: METOPROLOL TARTRATE 50 MG TAB PO SCH (19:54)
[2021-12-14] MEDS: PANTOprazole 40 MG TAB PO SCH (19:57)
[2021-12-14] MEDS ORDERED: ESCITALOPRAM OXALATE 10 MG TAB PO SCH (21:00)
[2021-12-14] MEDS ORDERED: GABAPENTIN 100 MG CAP PO SCH (21:00)
[2021-12-14] MEDS ORDERED: METOPROLOL TARTRATE 50 MG TAB PO SCH (21:00)
[2021-12-15] MEDS: NITROGLYCERIN 2% OINTMENT 30GM TUBE EXT SCH ×3 (01:14→12:26)
[2021-12-15 05:56] LABS: Basophils # (auto) 0.03 K/uL (0-0.2); Basophils % (auto) 0.6 %; Eosinophils # (auto) 0.09 K/uL (0-0.5); Eosinophils % (auto) 1.8 %; Hemoglobin 12.4 g/dL (12.0-16.0); Immature Granulocytes # (auto) 0.01 K/uL (0.00-0.02); Immature Granulocytes % (auto) 0.2 %; Lymphocytes # (auto) 1.32 K/uL (1.2-3.4); Lymphocytes % (auto) 26.7 %; Mean Corpuscular Hemoglobin 31.6 pg (25-34); Mean Corpuscular Hgb Conc 34.4 g/dL (32-36); Mean Corpuscular Volume 91.6 fL (80-100); Mean Platelet Volume 9.5 fL (7.4-10.4); Monocytes # (auto) 0.37 K/uL (0.11-0.59); Monocytes % (auto) 7.5 %; Neutrophils # (auto) 3.12 K/uL (1.4-6.5); Neutrophils % (auto) 63.2 %; Platelet Count 197 K/uL (130-400); RDW Coefficient of Variation 13.4 % (11.5-14.5); RDW Standard Deviation 44.5 fL (36.4-46.3); Red Blood Count 3.93 M/uL (4.2-5.4); White Blood Count 4.94 K/uL (4.8-10.8)
[2021-12-15 06:35] LABS: BUN Creatinine Ratio 24.1 (10-20); Calcium 9.8 mg/dl (8.5-10.1); Chol HDL Ratio 3.3 (0-5); Creatinine Clr Calc Pharmacy 63.4 ml/min; Est GFR (African American) 83.1 ml/min; Est GFR (Non-African American) 71.7 ml/min; Potassium 3.9 mmol/L (3.5-5.1)
[2021-12-15 06:42] LABS: Estimated Average Glucose 108 mg/dl; Hemoglobin A1C 5.4 % (4.5-5.6)
--- NOTE | 2021-12-15 07:03 | Electrocardiogram Report ---
Test Reason : Blood Pressure : / mmHG Vent. Rate : 071 BPM Atrial Rate : 071 BPM P-R Int : 176 ms QRS Dur : 090 ms QT Int : 414 ms P-R-T Axes : 058 015 006 degrees QTc Int : 449 ms Normal sinus rhythm Normal ECG When compared with ECG of 08-MAR-2018 00:16, T wave inversion now evident in Inferior leads Confirmed by Dimitry Baron ([id number]) on 12/15/2021 7:03:40 AM Referred By: Marguerite Perez Confirmed By:Dimitry Baron
[2021-12-15] MEDS ORDERED: ATROPINE SULFATE 0.1 MG/ML 10ML SYR IV ONE (08:46)
[2021-12-15] MEDS ORDERED: DOBUTamine HCL 12.5 MG/ML 20 ML VIAL IV ONE (08:47)
[2021-12-15] MEDS ORDERED: METOPROLOL TARTRATE 1 MG/ML VIAL IV ONE (08:47)
[2021-12-15] MEDS: METOPROLOL TARTRATE 50 MG TAB PO SCH (08:51)
[2021-12-15] MEDS: PANTOprazole 40 MG TAB PO SCH (08:52)
--- NOTE | 2021-12-15 08:53 | Electrocardiogram Report ---
Test Reason : Blood Pressure : / mmHG Vent. Rate : 053 BPM Atrial Rate : 053 BPM P-R Int : 198 ms QRS Dur : 088 ms QT Int : 484 ms P-R-T Axes : 066 034 039 degrees QTc Int : 454 ms Sinus bradycardia Low voltage QRS Borderline ECG When compared with ECG of 14-DEC-2021 12:29, T-wave inversion in Inferior leads no longer present Confirmed by Marcell Ba ([id number]) on 12/15/2021 8:52:53 AM Referred By: Marguerite Perez Confirmed By:Marcell Ba
[2021-12-15] MEDS ORDERED: ASPIRIN 81 MG ECTAB PO SCH (09:00)
[2021-12-15] MEDS ORDERED: CHOLECALCIFEROL 1,000 UNITS 25 MCG TAB PO SCH (09:00)
[2021-12-15] MEDS ORDERED: LEVOTHYROXINE SODIUM 150 MCG TABLET PO SCH (09:00)
[2021-12-15] MEDS ORDERED: OXYBUTYNIN CHLORIDE XL 5 MG TABCR PO SCH (09:00)
--- NOTE | 2021-12-15 11:44 | XCELERA ---
[id number]
--- NOTE | 2021-12-15 14:16 | Discharge Summary ---
Date of Service December 15, 2021 Admission HPI Per Admitting Provider Alexandrea Evans is a 76 year old female who presents to the ER with chest pain. She reports new onset exertional substernal chest pain getting increasingly worse over the last week. Lasts for a few minutes at a time. Occasional radiation to her left arm. She last had chest pain about an hour before being seen (around 2pm) occurred on minimal exertion, while putting on her gown. She reports the pain has stayed about the same, always when active but increasing in frequency over the last week. She never has it at rest. In the ER EKG was mildly concerning for TWI in inferior leads. Initial troponin negative. HEART score 5 (moderate). She was referred to medicine for admission and ongoing management of chest pain. Principal Diagnosis Noncardiac chest pain Discharge Exam General: A&Ox3. NAD. Cooperative. HEENT: Atraumatic, normocephalic. Patient vision and hearing grossly intact Pulm: CTAB A&P. -wheezes, -rales, -rhonchi. Symmetrical chest rise. No increase in work of breathing. No respiratory distress. Cardiac: RRR, -mrg. Radial pulses intact and symmetrical. Abdominal: Nontender, nondistended, soft. BS present. Extremities: Moves extremities equally, sensation intact in hands and feet without deficit to soft touch. Strength grossly intact to deputy sheriff/investigator, ankle dorsiflexion/plantarflexion. No edema at time of discharge. No calf asymmetry. Discharge Data Allergies Allergy/AdvReac Type Severity Reaction Status Date / Time Influenza Virus Vaccines Allergy Mild itchy Verified 12/14/21 14:56 Sulfa (Sulfonamide Allergy Mild PRURITIS Verified 12/14/21 14:56 Antibiotics) atorvastatin AdvReac Mild GI UPSET Verified 12/14/21 14:56 codeine AdvReac Mild GI UPSET Verified 12/14/21 14:56 oxycodone AdvReac Mild GI UPSET Verified 12/14/21 14:56 Consultations 12/14/21 14:31 ED Decision to Admit Stat 12/14/21 15:11 Consult Cardiology Routine Hospital Course (1) Unstable angina: Patient is a 76-year-old female who was admitted for concern of unstable angina with escalating symptoms. She was treated with full dose aspirin in the ER, metoprolol, and Nitropaste. Heparinization was deferred. Patient had some T wave inversions, but no ST segment changes on admission. Cardiology was consulted and patient was recommended for a cardiac stress test. Patient underwent a cardiac stress test 12/15/2021 dobutamine stress which showed all garza augmenting appropriately, nonspecific ST changes, intermittent chest pain which did not correlate with the degree of hemodynamic stress, normal left ventricular systolic function, EF of 60 to 65%, mild aortic regurg, mild mitral regurg, and moderate tricuspid regurg with RVSP 40-50 mm. Given symptoms and elevated RVSP a D-dimer was obtained, this was elevated from normal, although below the age-adjusted cutoff. On shared decision making given patient's symptoms without other explainable cause CTA was obtained. This did not show evidence of PE. Patient was discharged to outpatient follow-up, noncardiac chest pain, with treatment for history of GERD. To do as outpatient: 1. PCP follow-up 2. To complete 4 weeks of omeprazole twice daily, history of GERD with ulcers, Pepcid as needed up to twice daily 3. Follow-up on Lyme serology which was pending at time of discharge 4. Given negative cardiac rule out, no underlying diabetes, and well-controlled blood pressure with additional concern for history of ulcers patient was not started on aspirin, and was not continued on metoprolol at discharge 5. Patient reports intolerance of statin, LDL during admission was 119 (2) Hypothyroidism: TSH with AM labs. Notably TSH 0.257 in Oct 2021. No free T4 performed at that time. Continue levothyroxine 150 mcg PO daily (3) Gastroesophageal reflux disease: Prior history of gastric ulcer noted Switch omeprazole for pantoprazole per hospital formulary Discharge to resume omeprazole as outpatient. Patient reports she had stopped taking this approximately 3 months prior to presentation (4) Female stress incontinence: Continue oxybutynin (5) Depression with anxiety: Continue Lexapro VTE Prophylaxis - chemical deferred Diet - heart healthy Disposition - observation status to PCU Total Time Total Time Spent Total Time Spent (In Minutes): Time spend day of discharge 70 minutes including direct patient care, documentation, review of labs and images, and coordination of care. Discharge Plan Discharge Items Patient Disposition: Home - Self-Care Reason For Visit: UNSTABLE ANGINA Discharge Diagnosis: Non-cardiac pain Activity: Per Instructions section Non-emergency contact: Primary Care Provider Call non-emergency contact if: you have any medication questions, your symptoms worsen, your pain is not controlled and your pain is worsening Follow-up/Referrals: Marguerite Perez MD [Primary Care Provider] - Diet: Regular Addtl Attending Provider Instructions: You were seen in the hospital for concerns of chest pain with radiation to the shoulder. Your troponins did not show any evidence of heart damage. You had a stress echo performed with showed normal pumping, and did not show evidence of ischemia/heart attack. You have a history of ulcers requiring anti-acid treatment, your pain could also be caused by acid reflux. You were noted to have some arthritis on your xray which could also cause symptoms. You did not show evidence of blood clots or infection during admission. You had a Lyme test drawn which was pending at time of discharge, please have your PCP followup on this result. You are able to ambulate independently, and are being discharged home on the medications below with followup to your PCP Dr. Perez. You did not show evidence of diabetes during admission. You have been prescribed a medication, omeprazole. Please take omeprazole 40mg twice daily x4 weeks. You may also take pepcid (famotidine) 20mg twice daily. You were started on a blood pressure medication during admission, metoprolol. While your blood pressure was slightly high during admission this was normal to slightly low following admission. This medication was not continued at discharge; however, you should have a followup blood pressure check performed as an outpatient and if your blood pressure is consistently above 140 please discuss starting a blood pressure medication such as metoprolol with your primary care doctor. You should have a followup appointment with your PCP within 2 weeks. An appointment is being scheduled for you. You should recieve a call to confirm your appointment, if you do not receive a call within 48 hours please call your PCP at the number above. If you develop any new or worsening symptoms including fever, chills, sweats, chest pain, chest pressure, difficulty breathing, uncontrolled nausea/vomiting, rash, wheezing, passing out or nearly passing out, bleeding, black/bloody bowel movements, or other new or concerning symptoms please call your primary care physician, or call 911 for re-evaluation in the emergency department if you are very concerned. Pending Studies at Discharge: No Stand-Alone Forms: My [employer], Smoking Cessation Medications and DC Order Prescriptions: Continued furosemide 20 mg tablet 20 mg PO DAILY PRN (Reason: edema) Qty: 15 RF: 0 gabapentin 100 mg capsule 200 mg PO PM Qty: 180 RF: 3 escitalopram oxalate 5 mg tablet 5 mg PO HS Qty: 90 RF: 3 baclofen 5 mg tablet 5 - 10 mg PO HS PRN (Reason: neck pain) RF: 0 oxybutynin chloride 5 mg tablet extended release 24hr 5 mg PO QAM RF: 0 cholecalciferol (vitamin D3) 2,000 unit capsule 2,000 units PO QAM RF: 0 acetaminophen 500 mg tablet 1,000 mg PO Q6H PRN (Reason: Pain) Qty: 1 RF: 0 hydroxyzine HCl 10 mg tablet 10 mg PO DAILY PRN (Reason: itching/sleeplessness) Qty: 30 RF: 5 meclizine 25 mg tablet 12.5 - 25 mg PO TID PRN (Reason: dizziness or vertigo) RF: 0 omeprazole 40 mg capsule,delayed release(DR/EC) 40 mg PO BID Qty: 60 RF: 5 levothyroxine 150 mcg tablet 150 mcg PO QAM RF: 0 Discharge Orders: Discharge Order (Routine); Ordered 12/15/21 Ordered By: John Acevedo/Other Patient Handouts: Tips to Control Acid Reflux Admission Data Admit Date/Time: 12/14/21 17:42 Attending Provider: John Payne Admit Provider: Dominik Hinojosa Primary Care Provider: Marguerite Perez Other Providers: Dominik Hinojosa ; Dimitry Baron Other Interventions: Discharge Summary Assessment (RN) Last Done: 12/15/21 16:39 Coding Level of Care Code D/C DAY MANAGEMENT >30 MINS Diagnoses Unstable angina I20.0 Hypothyroidism E03.9 Gastroesophageal reflux disease K21.9 Female stress incontinence N39.3 Depression with anxiety F41.8
[2021-12-15 14:54] LABS: D Dimer 580 ug/L FEU (0-500)
[2021-12-15] MEDS ORDERED: OPTIRAY 320 125ml IV ONE (15:50)
--- NOTE | 2021-12-15 16:05 | CT Scan Report ---
CT angio chest PE protocol CLINICAL HISTORY: ?PE TECHNIQUE: Multidetector row helical CT of the chest was performed with angiographic protocol. Morales l and sagittal reformations were obtained. Coronal and sagittal MIPS were obtained from the axial brunilda a set and were submitted for review. Automated dose lowering techniques and/or adjustment according to patient size were utilized for this exam. Comparison: None available at the time of this dictation. FINDINGS: Lungs and pleura: Normal. Heart and pericardium: Cardiomegaly is seen with biatrial enlargement. Vessels: No evidence of pulmonary embolism. Mediastinum and mario: Subcentimeter lymph nodes are seen. Chest wall and lower neck: Unremarkable. Abdomen: A hiatal hernia is seen. Bones: Degenerative changes in the thoracic spine. IMPRESSION: No evidence of pulmonary embolism. ACT 112: Negative or not required by law. Electronically signed by: Anjum Cornelius M.D. 12/15/2021 4:04 PM
[2021-12-15 17:02] LABS: Lyme Ab IgG w/WB Rflx Negative (Negative); Lyme Ab IgM w/WB Rflx Negative (Negative)
== END 2021-12-15 17:36 | disposition home or self-care (01) ==
LOC: ED 12:12 → 2S 12:12 → SUATTDRO 17:42 → 2S 18:09